=== PATIENT | female | born 1995 | race Caucasian/White ===

== ENCOUNTER 2016-10-20 10:21 | Inpatient (IN) | payer OTHER ==
[2016-10-20 12:29] VITALS: BMI 25.6
--- NOTE | 2016-10-20 15:23 | HP ---
COWS - Scale Resting Pulse: 1= [place] 81-100 Sweatin=Flushed/Facial Moisture Restless Observation: 3= Extraneous Movement Pupil Size: 2= Moderately Dilated Bone or Joint Aches: 2= Severe Diffuse Aches Runny Nose/ Eye Tearin= Runny Nose/Eyes GI Upset > 30mins: 3= Vomiting/Diarrhea Tremor Observation: 2= Slight Tremor Visible Yawning Observation: 2= >3x During Session Anxiety or Irritability: 2=Irritable/Anxious Goose Flesh Skin: 0=Smooth Skin COWS Score: 21 CIWA Score - CIWA Score Nausea/Vomitin Muscle Tremors: 3 Anxiety: 3 Agitation: 3 Paroxysmal Sweats: 2 Orientation: 0-Oriented Tacttile Disturbances: 2-Mild Itch/Numbness/Burn Auditory Disturbances: 2-Mild Harshness/Frighten Visual Disturbances: 2-Mild Sensitivity Headache: 2-Mild CIWA-Ar Total Score: 22 Admission ROS BHS - HPI Chief Complaint: i need help to stops using drugs Allergies/Adverse Reactions: Allergies Allergy/AdvReac Type Severity Reaction Status Date / Time Sulfa (Sulfonamide Allergy Severe Rash Verified 10/20/16 14:50 Antibiotics) History of Present Illness: this 21 years old female with multiple drugs dependence,withdrawal symptom,last detox 03/12/16 to 03/17/16 [facility] anxiety,depression,depression asthma old fx of right ribs longest period of sobriety 2 years Exam Limitations: No Limitations - Ebola screening Have you traveled outside of the country in the last 21 days: No Have you been sick,other than usual withdrawal symptoms: No - Review of Systems Constitutional: Chills, Diaphoresis, Loss of Appetite, Malaise, Night Sweats, Changes in sleep, Weakness EENT: reports: Tearing, Nose Congestion Respiratory: reports: No Symptoms reported, Other (asthma) Cardiac: reports: Palpitations GI: reports: Diarrhea, Nausea, Vomiting, Abdominal cramping : reports: No Symptoms Reported Musculoskeletal: reports: No Symptoms Reported, Back Pain, Joint Pain, Muscle Pain Integumentary: reports: Dryness Neuro: reports: Headache, Tremors Endocrine: reports: No Symptoms Reported Hematology: reports: No Symptoms Reported Psychiatric: reports: Anxious (ptsd), Depressed Patient History - Patient Medical History Hx Anemia: No Hx Asthma: Yes (Pt is on MDI) Hx Chronic Obstructive Pulmonary Disease (COPD): No Hx Cancer: No Hx Cardiac Disorders: No Hx Congestive Heart Failure: No Hx Hypertension: No Hx Hypercholesterolemia: No Hx Pacemaker: No HX Cerebrovascular Accident: No Hx Seizures: No Hx Dementia: No Hx Diabetes: No Hx Gastrointestinal Disorders: No Hx Liver Disease: No Hx Genitourinary Disorders: No Hx Sexually Transmitted Disorders: No Hx Renal Disease (ESRD): No Hx Thyroid Disease: No Hx Human Immunodeficiency Virus (HIV): No (last 10/19/16) Hx Hepatitis C: No Hx Depression: Yes Hx Suicide Attempt: No Hx Bipolar Disorder: Yes Hx Schizophrenia: No Other Medical History: no suiicdal,no homicidal - Patient Surgical History Past Surgical History: Yes Hx Section: Yes (2013) Anesthesia Reaction: No - PPD History Previous Implant?: Yes Documented Results: Negative w/proof Implanted On Prior [facility] Admission?: Yes Date: 02/09/16 Results: 0 MM PPD to be Administered?: No - Reproductive History Patient is a Female of Child Bearing Age (11 -55 yrs old): Yes Last Menstrual Period: 10/20/16 Patient : No - Smoking Cessation Smoking history: Current every day smoker Have you smoked in the past 12 months: Yes Aproximately how many cigarettes per day: 20 Hx Chewing Tobacco Use: No Initiated information on smoking cessation: Yes 'Breaking Loose' booklet given: 10/20/16 - Substance & Tx. History Hx Alcohol Use: No Substance Use Type: Cocaine, Heroin, Marijuana, Tranquilizers Hx Substance Use Treatment: Yes ([facility] 03/12/16 to 03/17/16) - Substances Abused Heroin Route: Injection Frequency: Daily Amount used: 20 BAGS AND UP Age of first use: 8 Date of Last Use: 10/19/16 Alprazolam (Xanax) Route: Oral Frequency: Daily Amount used: 4MG Age of first use: 13 Date of Last Use: 10/19/16 Marijuana/Hashish Route: Smoking Frequency: Daily Amount used: 2 JOINTS Age of first use: 13 Date of Last Use: 10/19/16 Cocaine Route: Inhalation Frequency: Daily Amount used: $100 Age of first use: 11 Date of Last Use: 10/19/16 Family Disease History - Family Disease History Family Disease History: Diabetes: Grandparent, Mother, Other: Father (HEROIN & ALCOHOL) Admission Physical Exam [facility] - Vital Signs Vital Signs: Vital Signs - 24 hr 10/20/16 12:26 Temperature 96 F L Pulse Rate 83 Respiratory 19 Rate Blood Pressure 115/70 - Physical General Appearance: Yes: Moderate Distress, Tremorous, Irritable, Sweating, Anxious HEENTM: Yes: Hearing grossly Normal, Normal ENT Inspection, Pharynx Normal, Nasal Congestion Respiratory: Yes: Lungs Clear, Normal Breath Sounds, No Respiratory Distress Neck: Yes: Within Normal Limits Breast: Yes: Breast Exam Deferred Cardiology: Yes: Within Normal Limits, Regular Rhythm, Regular Rate, S1, S2 Abdominal: Yes: Within Normal Limits, Normal Bowel Sounds, Non Tender, Flat, Soft Genitourinary: Yes: Within Normal Limits Back: Yes: Normal Inspection, Muscle Spasm Musculoskeletal: Yes: Within Normal Limits, full range of Motion, Back pain, Muscle Pain Extremities: Yes: Within Normal Limits, Normal Range of Motion, Tremors Neurological: Yes: refractory technician II-XII NML intact, Fully Oriented, Alert, Motor Strength 5/5 Integumentary: Yes: Dry Lymphatic: Yes: Within Normal Limits - Diagnostic (1) Anxiety and depression Current Visit: No Status: Acute (2) Cocaine dependence Current Visit: No Status: Acute (3) Nicotine dependence Current Visit: No Status: Acute (4) Opioid dependence with withdrawal Current Visit: No Status: Acute (5) Sedative, hypnotic or anxiolytic dependence with withdrawal, uncomplicated Current Visit: No Status: Acute (6) Asthma Current Visit: No Status: Chronic (7) Bipolar I disorder Current Visit: No Status: Chronic (8) PTSD (post-traumatic stress disorder) Current Visit: No Status: Chronic Comment: By history. Cleared for Admission [facility] - Detox or Rehab [facility] Level of Care: Medically Managed Detox Regimen/Protocol: Methadone/Valium [facility] Breath Alcohol Content Breath Alcohol Content: 0 Urine Pregancy Test - Result Urine Test Results: Negative- NO Line Present Urine Drug Screen - Results Drug Screen Negative: No Urine Drug Screen Results: THC-Marijuana, OPI-Opiates, BZO-Benzodiazepines
[2016-10-20] MEDS ORDERED: LOPERAMIDE HCL 2 MG CAPSULE PO PRN (16:58)
[2016-10-20] MEDS ORDERED: P-EPHED 60MG/TRIPROLIDI 2.5MG TABLET PO PRN (16:58)
[2016-10-20] MEDS ORDERED: MENTHOL/PHENOL 1 EACH UD MM PRN (16:58)
[2016-10-20] MEDS ORDERED: guaiFENesin/D-METHORPHAN HB 10 ML UNIT-DOSE CUPS PO PRN (16:58)
[2016-10-20] MEDS ORDERED: MAGNESIUM HYDROX 2400MG/30ML ORAL SUSPENSION 30 ML CUP PO PRN (16:58)
[2016-10-20] MEDS ORDERED: MAGNESIUM CITRATE 300 ML BOTTLE PO PRN (16:58)
[2016-10-20] MEDS ORDERED: MAG HYDROX/AL HYDROX/SIMETH 30 ML UNIT-DOSE CUP PO PRN (16:58)
[2016-10-20] MEDS ORDERED: IBUPROFEN 400 MG TABLET (FP) PO PRN (16:58)
[2016-10-20] MEDS ORDERED: diazePAM 5 MG TABLET PO ONE (17:30)
[2016-10-20] MEDS ORDERED: METHADONE HCL 10 MG TABLET (FOR DETOX USE ONLY) PO ONE ×2 (17:30→23:00)
[2016-10-20] MEDS: NICOTINE POLACRILEX 2 MG GUM BUC PRN (17:39)
[2016-10-20] MEDS: NICOTINE 21 MG/24 HOURS TOPICAL PATCH TD SCH (17:39)
[2016-10-20] MEDS ORDERED: ALBUTEROL SO4 6.7 GM HFA INHALER IH ONE (18:12)
[2016-10-20] MEDS: ALBUTEROL SO4 6.7 GM HFA INHALER IH PRN (18:14)
[2016-10-20] MEDS ORDERED: diphenhydrAMINE HCL 50 MG CAPSULE PO PRN (22:00)
[2016-10-20] MEDS: diazePAM 5 MG TABLET PO SCH (22:41)
[2016-10-20] MEDS: THIAMINE HCL 100 MG TABLET (FP) PO SCH (22:42)
[2016-10-21 00:10] LABS: URINE APPEARANCE CLOUDY; URINE BILIRUBIN NEGATIVE (NEGATIVE); URINE COLOR DKYELLOW; URINE GLUCOSE (UA) NEGATIVE (NEGATIVE); URINE KETONE NEGATIVE (NEGATIVE); URINE NITRITE POSITIVE (NEGATIVE); URINE UROBILINOGEN NEGATIVE E.U./dl (0.2-1.0)
[2016-10-21 01:22] LABS: URINE BLOOD 3+ (NEGATIVE); URINE LEUK ESTERASE 1+ (NEGATIVE); URINE PROTEIN 1+ (NEGATIVE)
[2016-10-21 01:41] LABS: URINE BACTERIA RARE /hpf (NONE SEEN); URINE HYALINE CAST 2 /lpf; URINE MUCUS FEW; URINE RBC 299 /hpf (0-3); URINE WBC 51 /hpf (3-5)
[2016-10-21] MEDS: diazePAM 5 MG TABLET PO PRN ×4 (03:13→19:26)
[2016-10-21] MEDS: ALBUTEROL SO4 6.7 GM HFA INHALER IH PRN ×3 (03:15→22:17)
[2016-10-21] MEDS: diazePAM 5 MG TABLET PO SCH ×3 (05:46→22:17)
[2016-10-21] MEDS ORDERED: METHADONE HCL 10 MG TABLET (FOR DETOX USE ONLY) PO SCH (10:00)
[2016-10-21 10:30] LABS: MCH 29.7 pg (25.7-33.7); MCHC 33.6 g/dl (32.0-36.0); MEAN CELL VOLUME 88.3 fl (80-96); MEAN PLT VOLUME 9.4 fl (7.5-11.1); PLATELET COUNT 449 K/MM3 (134-434); RDW 13.4 % (11.6-15.6); WHITE BLOOD COUNT 9.8 K/mm3 (4.0-10.0)
[2016-10-21] MEDS: PRENATAL VITAMINS W/ FOLIC ACID TABLET (FP) PO SCH (10:43)
[2016-10-21] MEDS: NICOTINE 21 MG/24 HOURS TOPICAL PATCH TD SCH (10:44)
[2016-10-21] MEDS: ACETAMINOPHEN 325 MG TABLET (FP) PO PRN ×2 (10:46→22:18)
[2016-10-21] MEDS: NICOTINE POLACRILEX 2 MG GUM BUC PRN ×4 (10:50→22:18)
[2016-10-21 11:08] LABS: ALBUMIN 3.7 g/dl (3.4-5.0); ALK PHOS 59 U/L (45-117); ANION GAP 8 (8-16); BILIRUBIN,TOTAL 0.3 mg/dL (0.2-1.0); CALCIUM 9.3 mg/dL (8.5-10.1); CO2 27 mmol/L (21-32); CREATININE 0.6 mg/dL (0.55-1.02); GLUCOSE,RANDOM 78 mg/dL (74-106); SGOT/AST 8 U/L (15-37); SGPT/ALT 15 U/L (12-78); TOT PROT 6.8 g/dl (6.4-8.2)
[2016-10-21] MEDS: CYCLOBENZAPRINE HCL 10 MG TABLET (FP) PO PRN ×2 (12:09→22:17)
--- NOTE | 2016-10-21 13:54 | PN ---
S CIWA - CIWA Score Nausea/Vomitin Muscle Tremors: 3 Anxiety: 3 Agitation: 3 Paroxysmal Sweats: 2 Orientation: 0-Oriented Tacttile Disturbances: 1-Very Mild Itch/Numbness Auditory Disturbances: 1-Very Mild Visual Disturbances: 1-Very Mild Sensitivity Headache: 2-Mild CIWA-Ar Total Score: 19 S Progress Note (SOAP) Subjective: ALERT,IRRITABLE,ANXIOUS,INTERRUPTED SLEEP,TREMOR,PAIN IN THE BODY AND BACK Objective: 10/21/16 13:51 Vital Signs Temperature 97.7 F 10/21/16 10:24 Pulse Rate 81 10/21/16 10:24 Respiratory Rate 20 10/21/16 10:24 Blood Pressure 108/71 10/21/16 10:24 O2 Sat by Pulse Oximetry (%) EKG SINUS RHYTHM WITH SINUS ARRHYTHMIA Laboratory Last Values WBC 9.8 K/mm3 (4.0-10.0) 10/21/16 06:30 RBC 4.31 M/mm3 (3.60-5.2) 10/21/16 06:30 Hgb 12.8 GM/dL (10.7-15.3) 10/21/16 06:30 Hct 38.1 % (32.4-45.2) 10/21/16 06:30 MCV 88.3 fl (80-96) 10/21/16 06:30 MCHC 33.6 g/dl (32.0-36.0) 10/21/16 06:30 RDW 13.4 % (11.6-15.6) 10/21/16 06:30 Plt Count 449 K/MM3 (134-434) H 10/21/16 06:30 MPV 9.4 fl (7.5-11.1) D 10/21/16 06:30 Sodium 139 mmol/L (136-145) 10/21/16 06:30 Potassium 4.1 mmol/L (3.5-5.1) 10/21/16 06:30 Chloride 104 mmol/L (98-107) 10/21/16 06:30 Carbon Dioxide 27 mmol/L (21-32) 10/21/16 06:30 Anion Gap 8 (8-16) 10/21/16 06:30 BUN 12 mg/dL (7-18) D 10/21/16 06:30 Creatinine 0.6 mg/dL (0.55-1.02) 10/21/16 06:30 Creat Clearance w eGFR > 60 (>60) 10/21/16 06:30 Random Glucose 78 mg/dL (74-106) 10/21/16 06:30 Calcium 9.3 mg/dL (8.5-10.1) 10/21/16 06:30 Total Bilirubin 0.3 mg/dL (0.2-1.0) D 10/21/16 06:30 AST 8 U/L (15-37) L 10/21/16 06:30 ALT 15 U/L (12-78) D 10/21/16 06:30 Alkaline Phosphatase 59 U/L (45-117) 10/21/16 06:30 Total Protein 6.8 g/dl (6.4-8.2) 10/21/16 06:30 Albumin 3.7 g/dl (3.4-5.0) 10/21/16 06:30 Urine Color Dkyellow 10/20/16 21:16 Urine Appearance Cloudy 10/20/16 21:16 Urine pH 5.0 (5.0-8.0) 10/20/16 21:16 Ur Specific [place] 1.025 (1.001-1.035) 10/20/16 21:16 Urine Protein 1+ (NEGATIVE) H 10/20/16 21:16 Urine Glucose (UA) Negative (NEGATIVE) 10/20/16 21:16 Urine Ketones Negative (NEGATIVE) 10/20/16 21:16 Urine Blood 3+ (NEGATIVE) H 10/20/16 21:16 Urine Nitrite Positive (NEGATIVE) 10/20/16 21:16 Urine Bilirubin Negative (NEGATIVE) 10/20/16 21:16 Urine Urobilinogen Negative E.U./dl (0.2-1.0) 10/20/16 21:16 Ur Leukocyte Esterase 1+ (NEGATIVE) H 10/20/16 21:16 Urine RBC 299 /hpf (0-3) 10/20/16 21:16 Urine WBC 51 /hpf (3-5) 10/20/16 21:16 Ur Epithelial Cells Few /hpf (FEW) 10/20/16 21:16 Urine Bacteria Rare /hpf (NONE SEEN) 10/20/16 21:16 Hyaline Casts 2 /lpf 10/20/16 21:16 Urine Mucus Few 10/20/16 21:16 RPR Titer Nonreactive (NONREACTIVE) 10/21/16 06:30 10/21/16 13:52 PATIENT IS HAVING MENSTRUATION NOW Assessment: 10/21/16 13:52 WITHDRAWAL SYMPTOM Plan: CONTINUE DETOX
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
[2016-10-21] MEDS: ARIPiprazole 15 MG TABLET PO SCH (18:34)
[2016-10-21] MEDS: traZODone HCL 50 MG TABLET (FP) PO SCH (22:16)
[2016-10-21] MEDS: THIAMINE HCL 100 MG TABLET (FP) PO SCH (22:16)
[2016-10-21] MEDS: LITHIUM CARBONATE 300 MG CAPSULE (FP) PO SCH (22:17)
[2016-10-22] MEDS: diazePAM 5 MG TABLET PO PRN ×3 (05:52→19:50)
[2016-10-22] MEDS: CYCLOBENZAPRINE HCL 10 MG TABLET (FP) PO PRN ×3 (05:53→22:33)
[2016-10-22] MEDS: ACETAMINOPHEN 325 MG TABLET (FP) PO PRN (05:53)
[2016-10-22] MEDS: LITHIUM CARBONATE 300 MG CAPSULE (FP) PO SCH ×3 (05:57→22:33)
[2016-10-22] MEDS: METHADONE HCL 5 MG TABLET (FOR DETOX USE ONLY) PO SCH (10:31)
[2016-10-22] MEDS: PRENATAL VITAMINS W/ FOLIC ACID TABLET (FP) PO SCH (10:31)
[2016-10-22] MEDS: diazePAM 5 MG TABLET PO SCH ×2 (10:31→22:33)
[2016-10-22] MEDS: GABAPENTIN 300 MG CAPSULE (FP) PO SCH (10:31)
[2016-10-22] MEDS: NICOTINE 21 MG/24 HOURS TOPICAL PATCH TD SCH (10:33)
[2016-10-22] MEDS: ARIPiprazole 15 MG TABLET PO SCH (12:12)
[2016-10-22] MEDS: NICOTINE POLACRILEX 2 MG GUM BUC PRN ×2 (13:34→22:33)
--- NOTE | 2016-10-22 14:19 | PN ---
[facility] CIWA - CIWA Score Nausea/Vomitin Muscle Tremors: 3 Anxiety: 3 Agitation: 2 Paroxysmal Sweats: 1-Minimal Palms Moist Orientation: 0-Oriented Tacttile Disturbances: 1-Very Mild Itch/Numbness Auditory Disturbances: 1-Very Mild Visual Disturbances: 1-Very Mild Sensitivity Headache: 2-Mild CIWA-Ar Total Score: 17 [facility] COWS - Scale Resting Pulse: 1= [place] 81-100 Sweatin= Chills/Flushing Restless Observation: 3= Extraneous Movement Pupil Size: 1= Pupils >than Normal Bone or Joint Aches: 2= Severe Diffuse Aches Runny Nose/ Eye Tearin= Runny Nose/Eyes GI Upset > 30mins: 2= Nausea/Diarrhea Tremor Observation of Outstretched Hands: 2= Slight Tremor Visible Yawning Observation: 1= 1-2x During Session Anxiety or Irritability: 2=Irritable/Anxious Goose Flesh Skin: 0=Smooth Skin COWS Score: 17 [facility] Progress Note (SOAP) Subjective: ALERT,IRRITABLE,ANXIOUS,INTERRUPTED SLEEP,TREMOR,PAIN IN THE BODY AND BACK Objective: 10/22/16 14:19 Vital Signs Temperature 97.7 F 10/22/16 14:17 Pulse Rate 95 H 10/22/16 14:17 Respiratory Rate 18 10/22/16 14:17 Blood Pressure 96/60 10/22/16 14:17 O2 Sat by Pulse Oximetry (%) Assessment: 10/22/16 14:19 WITHDRAWAL SYMPTOM Plan: CONTINUE DETOX
[2016-10-22] MEDS: ALBUTEROL SO4 6.7 GM HFA INHALER IH PRN (19:48)
[2016-10-22] MEDS: THIAMINE HCL 100 MG TABLET (FP) PO SCH (22:32)
[2016-10-22] MEDS: traZODone HCL 50 MG TABLET (FP) PO SCH (22:33)
[2016-10-23] MEDS: LITHIUM CARBONATE 300 MG CAPSULE (FP) PO SCH ×3 (05:57→22:29)
[2016-10-23] MEDS: ACETAMINOPHEN 325 MG TABLET (FP) PO PRN ×3 (05:57→22:31)
[2016-10-23] MEDS: diazePAM 5 MG TABLET PO PRN ×2 (06:08→15:04)
--- NOTE | 2016-10-23 08:47 | EKG ---
Test Reason : Blood Pressure : / mmHG Vent. Rate : 068 BPM Atrial Rate : 068 BPM P-R Int : 108 ms QRS Dur : 086 ms QT Int : 384 ms P-R-T Axes : 019 078 055 degrees QTc Int : 408 ms SINUS RHYTHM WITH SINUS ARRHYTHMIA WITH SHORT [place] OTHERWISE NORMAL ECG NO PREVIOUS ECGS AVAILABLE Confirmed by KRISTINA STEWART MD ([id number]) on 10/23/2016 8:47:40 AM Referred By: Confirmed By:KRISTINA STEWART MD
[2016-10-23] MEDS: diazePAM 5 MG TABLET PO SCH ×2 (10:42→22:29)
[2016-10-23] MEDS: PRENATAL VITAMINS W/ FOLIC ACID TABLET (FP) PO SCH (10:42)
[2016-10-23] MEDS: METHADONE HCL 5 MG TABLET (FOR DETOX USE ONLY) PO SCH (10:43)
[2016-10-23] MEDS: ARIPiprazole 15 MG TABLET PO SCH (10:43)
[2016-10-23] MEDS: GABAPENTIN 300 MG CAPSULE (FP) PO SCH (10:43)
[2016-10-23] MEDS: NICOTINE 21 MG/24 HOURS TOPICAL PATCH TD SCH (10:44)
[2016-10-23] MEDS: NICOTINE POLACRILEX 2 MG GUM BUC PRN ×3 (10:46→22:30)
[2016-10-23] MEDS: ALBUTEROL SO4 6.7 GM HFA INHALER IH PRN ×2 (10:47→17:35)
--- NOTE | 2016-10-23 11:00 | PN ---
[facility] Progress Note (SOAP) Subjective: interrupted sleep, sweats, mild dizziness , lbp Objective: 10/23/16 10:58 Vital Signs Temperature 97.9 F 10/23/16 06:00 Pulse Rate 63 10/23/16 06:00 Respiratory Rate 18 10/23/16 06:00 Blood Pressure 97/59 10/23/16 06:00 O2 Sat by Pulse Oximetry (%) Laboratory Tests 10/20/16 10/21/16 10/21/16 21:16 06:30 06:30 WBC 9.8 RBC 4.31 Hgb 12.8 Hct 38.1 MCV 88.3 MCHC 33.6 RDW 13.4 Plt Count 449 H MPV 9.4 D Sodium 139 Potassium 4.1 Chloride 104 Carbon Dioxide 27 Anion Gap 8 BUN 12 D Creatinine 0.6 Creat Clearance w eGFR > 60 Random Glucose 78 Calcium 9.3 Total Bilirubin 0.3 D AST 8 L ALT 15 D Alkaline Phosphatase 59 Total Protein 6.8 Albumin 3.7 Urine Color Dkyellow Urine Appearance Cloudy Urine pH 5.0 Ur Specific [place] 1.025 Urine Protein 1+ H Urine Glucose (UA) Negative Urine Ketones Negative Urine Blood 3+ H Urine Nitrite Positive Urine Bilirubin Negative Urine Urobilinogen Negative Ur Leukocyte Esterase 1+ H Urine RBC 299 Urine WBC 51 Ur Epithelial Cells Few Urine Bacteria Rare Hyaline Casts 2 Urine Mucus Few RPR Titer 10/21/16 06:30 WBC RBC Hgb Hct MCV MCHC RDW Plt Count MPV Sodium Potassium Chloride Carbon Dioxide Anion Gap BUN Creatinine Creat Clearance w eGFR Random Glucose Calcium Total Bilirubin AST ALT Alkaline Phosphatase Total Protein Albumin Urine Color Urine Appearance Urine pH Ur Specific [place] Urine Protein Urine Glucose (UA) Urine Ketones Urine Blood Urine Nitrite Urine Bilirubin Urine Urobilinogen Ur Leukocyte Esterase Urine RBC Urine WBC Ur Epithelial Cells Urine Bacteria Hyaline Casts Urine Mucus RPR Titer Nonreactive pt aox3 in nad lying in bed Assessment: 10/23/16 10:59 khadar archuleta's lbp Plan: cont. detox increase fluids
[2016-10-23] MEDS: CYCLOBENZAPRINE HCL 10 MG TABLET (FP) PO PRN (15:05)
[2016-10-23] MEDS ORDERED: COLLOIDAL OATMEAL 1 BAR EACH TP PRN (15:56)
[2016-10-23] MEDS: traZODone HCL 50 MG TABLET (FP) PO SCH (22:29)
[2016-10-23] MEDS: THIAMINE HCL 100 MG TABLET (FP) PO SCH (22:29)
[2016-10-24] MEDS: LITHIUM CARBONATE 300 MG CAPSULE (FP) PO SCH ×3 (05:07→22:25)
[2016-10-24] MEDS: hydrOXYzine PAMOATE 50 MG CAPSULE (FP) PO PRN ×3 (05:09→22:26)
[2016-10-24] MEDS: ACETAMINOPHEN 325 MG TABLET (FP) PO PRN ×3 (05:09→17:46)
[2016-10-24] MEDS: ALBUTEROL SO4 6.7 GM HFA INHALER IH PRN ×3 (05:11→22:27)
[2016-10-24] MEDS ORDERED: diazePAM 5 MG TABLET PO SCH (10:00)
[2016-10-24] MEDS ORDERED: METHADONE HCL 10 MG TABLET (FOR DETOX USE ONLY) PO SCH (10:00)
[2016-10-24] MEDS: GABAPENTIN 300 MG CAPSULE (FP) PO SCH (10:20)
[2016-10-24] MEDS: ARIPiprazole 15 MG TABLET PO SCH (10:20)
[2016-10-24] MEDS: PRENATAL VITAMINS W/ FOLIC ACID TABLET (FP) PO SCH (10:20)
[2016-10-24] MEDS: NICOTINE 21 MG/24 HOURS TOPICAL PATCH TD SCH (10:21)
[2016-10-24] MEDS: CYCLOBENZAPRINE HCL 10 MG TABLET (FP) PO PRN ×3 (10:22→22:25)
--- NOTE | 2016-10-24 10:50 | PN ---
B[facility] Progress Note (SOAP) Subjective: interrupted sleep, sweats, shakes, nausea , bodyaches Objective: 10/24/16 10:48 Vital Signs Temperature 98.2 F 10/24/16 06:28 Pulse Rate 115 H 10/24/16 06:28 Respiratory Rate 20 10/24/16 06:28 Blood Pressure 106/61 10/24/16 06:28 O2 Sat by Pulse Oximetry (%) Laboratory Tests 10/20/16 10/21/16 10/21/16 21:16 06:30 06:30 WBC 9.8 RBC 4.31 Hgb 12.8 Hct 38.1 MCV 88.3 MCHC 33.6 RDW 13.4 Plt Count 449 H MPV 9.4 D Sodium 139 Potassium 4.1 Chloride 104 Carbon Dioxide 27 Anion Gap 8 BUN 12 D Creatinine 0.6 Creat Clearance w eGFR > 60 Random Glucose 78 Calcium 9.3 Total Bilirubin 0.3 D AST 8 L ALT 15 D Alkaline Phosphatase 59 Total Protein 6.8 Albumin 3.7 Urine Color Dkyellow Urine Appearance Cloudy Urine pH 5.0 Ur Specific [place] 1.025 Urine Protein 1+ H Urine Glucose (UA) Negative Urine Ketones Negative Urine Blood 3+ H Urine Nitrite Positive Urine Bilirubin Negative Urine Urobilinogen Negative Ur Leukocyte Esterase 1+ H Urine RBC 299 Urine WBC 51 Ur Epithelial Cells Few Urine Bacteria Rare Hyaline Casts 2 Urine Mucus Few RPR Titer 10/21/16 06:30 WBC RBC Hgb Hct MCV MCHC RDW Plt Count MPV Sodium Potassium Chloride Carbon Dioxide Anion Gap BUN Creatinine Creat Clearance w eGFR Random Glucose Calcium Total Bilirubin AST ALT Alkaline Phosphatase Total Protein Albumin Urine Color Urine Appearance Urine pH Ur Specific [place] Urine Protein Urine Glucose (UA) Urine Ketones Urine Blood Urine Nitrite Urine Bilirubin Urine Urobilinogen Ur Leukocyte Esterase Urine RBC Urine WBC Ur Epithelial Cells Urine Bacteria Hyaline Casts Urine Mucus RPR Titer Nonreactive pt aox3 lying in bed Assessment: 10/24/16 10:49 withdrawal sx's Plan: cont detox increase fluids motrin 600mg tid vistaril prn
[2016-10-24] MEDS ORDERED: IBUPROFEN 600 MG TABLET (FP) PO PRN (10:51)
[2016-10-24] MEDS ORDERED: ONDANSETRON *ODT* 4 MG TABLET SL PRN (11:01)
[2016-10-24] MEDS: NICOTINE POLACRILEX 2 MG GUM BUC PRN ×2 (17:46→22:27)
[2016-10-24] MEDS: THIAMINE HCL 100 MG TABLET (FP) PO SCH (22:24)
[2016-10-24] MEDS: traZODone HCL 50 MG TABLET (FP) PO SCH (22:24)
[2016-10-25] MEDS: ALBUTEROL SO4 6.7 GM HFA INHALER IH PRN ×2 (05:26→09:52)
[2016-10-25] MEDS: LITHIUM CARBONATE 300 MG CAPSULE (FP) PO SCH (05:26)
[2016-10-25] MEDS: ACETAMINOPHEN 325 MG TABLET (FP) PO PRN (05:27)
[2016-10-25] MEDS ORDERED: METHADONE HCL 5 MG TABLET (FOR DETOX USE ONLY) PO SCH (06:00)
[2016-10-25 06:25] VITALS: BP 101/56; PULSE 78; TEMP 98.1
--- NOTE | 2016-10-25 09:01 | DS ---
[facility] Detox Discharge Summary Admission Date: 10/20/16 Discharge Date: 10/25/16 - History Present History: Cannabis Dependence, Cocaine Dependence, Opioid Dependence - Physical Exam Results Vital Signs: Vital Signs Temperature 98.1 F 10/25/16 06:00 Pulse Rate 78 10/25/16 06:00 Respiratory Rate 16 10/25/16 06:00 Blood Pressure 101/56 10/25/16 06:00 O2 Sat by Pulse Oximetry (%) - Treatment Hospital Course: Detox Protocol Followed, Detoxed Safely, Responded well, Discharged Condition Good - Medication Discharge Medications: Ambulatory Orders Albuterol Sulfate Inhaler - [Ventolin HFA Inhaler -] 2 inh PO Q6H PRN 02/06/16 Aripiprazole [Abilify -] 15 mg PO DAILY 10/20/16 Gabapentin [Neurontin -] 300 mg PO DAILY 10/20/16 [place] Carbonate [Eskalith -] 900 mg PO HS 10/20/16 Trazodone HCl [Desyrel -] 100 mg PO HS 10/20/16 - Diagnosis (1) Cannabis dependence Current Visit: Yes Status: Chronic (2) Cocaine dependence Current Visit: Yes Status: Chronic Qualifiers: Substance use status: uncomplicated Qualified Code(s): F14.20 - Cocaine dependence, uncomplicated (3) Nicotine dependence Current Visit: Yes Status: Chronic (4) Opioid dependence with withdrawal Current Visit: Yes Status: Chronic (5) Sedative, hypnotic or anxiolytic dependence with withdrawal, uncomplicated Current Visit: Yes Status: Chronic (6) Asthma Current Visit: Yes Status: Chronic Qualifiers: Asthma severity: mild intermittent (7) Bipolar disorder Current Visit: Yes Status: Chronic Qualifiers: Current episode severity: unspecified (8) Anxiety and depression Current Visit: Yes Status: Chronic - AMA Did Patient Leave Against Medical Advice: No
[2016-10-25] MEDS: GABAPENTIN 300 MG CAPSULE (FP) PO SCH (09:51)
[2016-10-25] MEDS: ARIPiprazole 15 MG TABLET PO SCH (09:51)
[2016-10-25] MEDS: CYCLOBENZAPRINE HCL 10 MG TABLET (FP) PO PRN (09:51)
== END 2016-10-25 10:15 | disposition home or self-care (01) | DRG 773 ==
LOC: YASAS 10:21 → Y6N 15:28
PROVIDERS: ADMIT Internal Medicine; ATTEND Internal Medicine
PROC: HZ2ZZZZ Detoxification Services for Substance Abuse Treatment (ICD-10-PCS; principal; 2016-10-25)
DX: F11.23 Opioid dependence with withdrawal (principal); F13.230 Sedative, hypnotic or anxiolytic dependence with withdrawal, uncomplicated; F14.20 Cocaine dependence, uncomplicated; F12.20 Cannabis dependence, uncomplicated; F17.210 Nicotine dependence, cigarettes, uncomplicated; F43.10 Post-traumatic stress disorder, unspecified; G47.00 Insomnia, unspecified; F31.9 Bipolar disorder, unspecified; F41.8 Other specified anxiety disorders; J45.909 Unspecified asthma, uncomplicated
CPT/HCPCS: 36415; 80053; 80178; 81003; 81015; 85027; 86593; 93005; 93010

== ENCOUNTER 2016-12-05 06:48 | Inpatient (IN) | payer OTHER ==
[2016-12-05] MEDS ORDERED: hydrOXYzine PAMOATE 50 MG CAPSULE (FP) PO PRN (06:53)
[2016-12-05] MEDS ORDERED: LOPERAMIDE HCL 2 MG CAPSULE PO PRN (06:53)
[2016-12-05] MEDS ORDERED: diphenhydrAMINE HCL 50 MG CAPSULE PO PRN (06:53)
[2016-12-05] MEDS ORDERED: MAG HYDROX/AL HYDROX/SIMETH 30 ML UNIT-DOSE CUP PO PRN (06:53)
[2016-12-05] MEDS ORDERED: P-EPHED 60MG/TRIPROLIDI 2.5MG TABLET PO PRN (06:53)
[2016-12-05] MEDS ORDERED: guaiFENesin/D-METHORPHAN HB 10 ML UNIT-DOSE CUPS PO PRN (06:53)
[2016-12-05] MEDS ORDERED: IBUPROFEN 400 MG TABLET (FP) PO PRN (06:53)
[2016-12-05] MEDS ORDERED: METHADONE HCL 10 MG TABLET (FOR DETOX USE ONLY) PO ONE ×2 (06:53→22:00)
[2016-12-05] MEDS ORDERED: chlordiazePOXIDE HCL 25 MG CAPSULE PO PRN (06:53)
[2016-12-05] MEDS ORDERED: MENTHOL/PHENOL 1 EACH UD MM PRN (06:53)
[2016-12-05] MEDS ORDERED: MAGNESIUM HYDROX 2400MG/30ML ORAL SUSPENSION 30 ML CUP PO PRN (06:53)
[2016-12-05] MEDS ORDERED: ACETAMINOPHEN 325 MG TABLET (FP) PO PRN (06:53)
[2016-12-05] MEDS ORDERED: MAGNESIUM CITRATE 300 ML BOTTLE PO PRN (06:53)
[2016-12-05] MEDS ORDERED: ALBUTEROL SO4 2.5/IPRATROPIUM 0.5 INH SOL 3 ML VIAL.NEB. NEB PRN (06:56)
--- NOTE | 2016-12-05 07:02 | HP ---
COWS - Scale Resting Pulse: 1= UT 81-100 Sweatin= Beads of Sweat on Face Restless Observation: 5= Unable to Sit Still Pupil Size: 2= Moderately Dilated Bone or Joint Aches: 4=Acute Joint/Muscle Pain Runny Nose/ Eye Tearin= Runny Nose/Eyes GI Upset > 30mins: 2= Nausea/Diarrhea Tremor Observation: 4= Gross Tremor/Twitching Yawning Observation: 1= 1-2x During Session Anxiety or Irritability: 2=Irritable/Anxious Goose Flesh Skin: 0=Smooth Skin COWS Score: 26 CIWA Score - CIWA Score Nausea/Vomitin Muscle Tremors: 4-Moderate,w/Arms Extend Anxiety: 4-Mod. Anxious/Guarded Agitation: 4-Moderately Restless Paroxysmal Sweats: 3 Orientation: 1-Uncertain about Date Tacttile Disturbances: 2-Mild Itch/Numbness/Burn Auditory Disturbances: 0-None Visual Disturbances: 0-None Headache: 2-Mild CIWA-Ar Total Score: 22 Admission ROS S - HPI Chief Complaint: SEEKING DETOX FOR HEROIN DEPENDENCE Allergies/Adverse Reactions: Allergies Allergy/AdvReac Type Severity Reaction Status Date / Time Sulfa (Sulfonamide Allergy Severe Rash Verified 10/20/16 14:50 Antibiotics) History of Present Illness: 21 Y.O. FEMALE KNOWN TO [facility] ADMITTED FOR DETOX TXMENT. Exam Limitations: No Limitations - Ebola screening Have you traveled outside of the country in the last 21 days: No Have you had contact with anyone from an Ebola affected area: No Have you been sick,other than usual withdrawal symptoms: No Do you have a fever: No - Review of Systems Constitutional: Chills, Loss of Appetite, Malaise, Night Sweats, Changes in sleep EENT: reports: Other (RINORRHEA) Respiratory: reports: No Symptoms reported Cardiac: reports: No Symptoms Reported GI: reports: Diarrhea, Poor Appetite, Poor Fluid Intake, Abdominal cramping Musculoskeletal: reports: Joint Pain Integumentary: reports: Sweating Neuro: reports: No Symptoms reported Endocrine: reports: No Symptoms Reported Hematology: reports: No Symptoms Reported Psychiatric: reports: Anxious Other Systems: Reviewed and Negative Patient History - Patient Medical History Hx Anemia: No Hx Asthma: Yes (Pt is on MDI) Hx Chronic Obstructive Pulmonary Disease (COPD): No Hx Cancer: No Hx Cardiac Disorders: No Hx Congestive Heart Failure: No Hx Hypertension: No Hx Hypercholesterolemia: No Hx Pacemaker: No HX Cerebrovascular Accident: No Hx Seizures: No Hx Dementia: No Hx Diabetes: No Hx Gastrointestinal Disorders: No Hx Liver Disease: No Hx Genitourinary Disorders: No Hx Sexually Transmitted Disorders: No Hx Renal Disease (ESRD): No Hx Thyroid Disease: No Hx Human Immunodeficiency Virus (HIV): No Hx Hepatitis C: No Hx Depression: Yes Hx Suicide Attempt: No Hx Bipolar Disorder: Yes Hx Schizophrenia: No Other Medical History: INSOMNIA - Patient Surgical History Past Surgical History: Yes Hx Section: Yes (2013) Anesthesia Reaction: No - PPD History Previous Implant?: Yes Documented Results: Negative w/proof Implanted On Prior [facility] Admission?: Yes Date: 02/09/16 Results: 0 MM PPD to be Administered?: No - Reproductive History Patient is a Female of Child Bearing Age (11 -55 yrs old): Yes Last Menstrual Period: 11/21/16 Patient : No (NEG [facility]) - Smoking Cessation Smoking history: Current every day smoker Have you smoked in the past 12 months: Yes Aproximately how many cigarettes per day: 10 Cigars Per Day: 0 Hx Chewing Tobacco Use: No Initiated information on smoking cessation: Yes 'Breaking Loose' booklet given: 12/05/16 - Substance & Tx. History Hx Alcohol Use: Yes Hx Substance Use: Yes Substance Use Type: Heroin, Marijuana Hx Substance Use Treatment: Yes ([facility]) - Substances Abused HEROIN Route: Injection Frequency: Daily Amount used: 10-20 BUNDLES Age of first use: 4 Date of Last Use: 12/04/16 THC Route: Smoking Frequency: Daily Amount used: 2 JOINTS Age of first use: 11 Date of Last Use: 12/04/16 BEER/VODKA Route: Oral Frequency: 3-6 times per week Age of first use: 10 Date of Last Use: 12/02/16 Family Disease History - Family Disease History Family Disease History: Diabetes: Grandparent, Mother (HEROIN/ CRACK/COCAINE), Other: Father (HEROIN & ALCOHOL), Mother Admission Physical Exam [facility] - Physical General Appearance: Yes: Appropriately Dressed, Mild Distress, Tremorous, Sweating, Anxious HEENTM: Yes: EOMI, Normocephalic, Normal Voice, YUSUF, Pharynx Normal, Rhinorrhea , Other (DIALATED PUPILS) Respiratory: Yes: Chest Non-Tender, Lungs Clear, Normal Breath Sounds, No Respiratory Distress, No Accessory Muscle Use Neck: Yes: No masses,lesions,Nodules, Supple, Trachea in good position Breast: Yes: Breast Exam Deferred Cardiology: Yes: Regular Rhythm, S1, S2, Tachycardia Abdominal: Yes: Normal Bowel Sounds, Non Tender, Soft Genitourinary: Yes: Within Normal Limits Back: Yes: Normal Inspection Musculoskeletal: Yes: full range of Motion, Gait Steady Extremities: Yes: Normal Capillary Refill, Normal Range of Motion, Non-Tender, Tremors Neurological: Yes: inductor tester II-XII NML intact, Alert, Motor Strength 5/5 Integumentary: Yes: Clammy, Moist, Other (IVDA HODGE) Lymphatic: Yes: Within Normal Limits - Diagnostic (1) Asthma Current Visit: No Status: Chronic Qualifiers: Asthma severity: mild intermittent (2) Cannabis dependence Current Visit: Yes Status: Chronic (3) Nicotine dependence Current Visit: Yes Status: Chronic Qualifiers: Nicotine product type: cigarettes Substance use status: uncomplicated Qualified Code(s): F17.210 - Nicotine dependence, cigarettes, uncomplicated (4) Opioid dependence with withdrawal Current Visit: Yes Status: Chronic Cleared for Admission S - Detox or Rehab S Level of Care: Medically Managed Detox Regimen/Protocol: Methadone/Librium BHS Breath Alcohol Content Breath Alcohol Content: 0 Vital Signs - Vital Signs Vital Signs Refused: No Temperature: 96.8 F Temperature Source: Oral Pulse Rate: 91 Respiratory Rate: 20 Blood Pressure: 101/67 BP Location: Left Arm Blood Pressure Position: Sitting - Height Height: 5 ft 2 in - Weight Weight: 63.796 kg Weight Measurement Method: Stated by Patient Body Mass Index (BMI): 25.7 Urine Pregancy Test - Test Device Lot Number: [id number] Expiration Date: 06/07/18 - Control Horizontal Line in Upper Control Window?: Yes - Result Urine Test Results: Negative- NO Line Present Urine Drug Screen - Test Device Lot Number: [id number] Expiration Date: 08/08/18 - Control Is Test Valid: Yes - Results Drug Screen Negative: No Urine Drug Screen Results: THC-Marijuana, OPI-Opiates
[2016-12-05 07:10] VITALS: BMI 25.7
[2016-12-05] MEDS: chlordiazePOXIDE HCL 25 MG CAPSULE PO SCH ×2 (07:27→10:13)
[2016-12-05] MEDS: NICOTINE POLACRILEX 2 MG GUM BUC PRN ×2 (09:26→14:49)
--- NOTE | 2016-12-05 09:26 | PN ---
[facility] CIWA - CIWA Score Nausea/Vomitin-No Nausea/No Vomiting Muscle Tremors: 4-Moderate,w/Arms Extend Anxiety: 3 Agitation: 4-Moderately Restless Paroxysmal Sweats: 3 Orientation: 0-Oriented Tacttile Disturbances: 0-None Auditory Disturbances: 0-None Visual Disturbances: 0-None Headache: 0-None Present CIWA-Ar Total Score: 14 S COWS - Scale Resting Pulse: 0= PA 80 or Below Sweatin=Flushed/Facial Moisture Restless Observation: 1= Difficult to Sit Still Pupil Size: 0= Normal to Room Light Bone or Joint Aches: 2= Severe Diffuse Aches Runny Nose/ Eye Tearin= Runny Nose/Eyes GI Upset > 30mins: 0= None Tremor Observation of Outstretched Hands: 2= Slight Tremor Visible Yawning Observation: 1= 1-2x During Session Anxiety or Irritability: 2=Irritable/Anxious Goose Flesh Skin: 0=Smooth Skin COWS Score: 12 [facility] Progress Note (SOAP) Subjective: i have a UTI sweats irritable agitation restless Objective: 12/05/16 09:27 Vital Signs Temperature 96.8 F L 12/05/16 07:10 Pulse Rate 91 H 12/05/16 07:10 Respiratory Rate 20 12/05/16 07:10 Blood Pressure 101/67 12/05/16 07:10 O2 Sat by Pulse Oximetry (%) labs pending awake/alert ambulating no acute distress Assessment: 12/05/16 09:28 withdrawal sx Plan: continue detox increase fluids levaquin po x 3 days labs pending
[2016-12-05 09:51] VITALS: TEMP 97.5
[2016-12-05] MEDS ORDERED: NICOTINE 14 MG/24 HOURS TOPICAL PATCH TD SCH (10:00)
[2016-12-05] MEDS ORDERED: LEVOFLOXACIN 250 MG TABLET (FP) PO SCH (10:00)
[2016-12-05] MEDS ORDERED: PRENATAL VITAMINS W/ FOLIC ACID TABLET (FP) PO SCH (10:00)
[2016-12-05 12:07] LABS: MCH 29.3 pg (25.7-33.7); MCHC 33.2 g/dl (32.0-36.0); MEAN CELL VOLUME 88.5 fl (80-96); MEAN PLT VOLUME 8.4 fl (7.5-11.1); PLATELET COUNT 411 K/MM3 (134-434); RDW 14.4 % (11.6-15.6); WHITE BLOOD COUNT 10.1 K/mm3 (4.0-10.0)
[2016-12-05 12:28] LABS: ALBUMIN 4.3 g/dl (3.4-5.0); ALK PHOS 62 U/L (45-117); ANION GAP 10 (8-16); BILIRUBIN,TOTAL 0.4 mg/dL (0.2-1.0); CALCIUM 9.4 mg/dL (8.5-10.1); CO2 26 mmol/L (21-32); COCKROFT - GAULT 125.8765; CREATININE 0.7 mg/dL (0.55-1.02); GLUCOSE,RANDOM 107 mg/dL (74-106); SGOT/AST 11 U/L (15-37); SGPT/ALT 15 U/L (12-78); TOT PROT 7.6 g/dl (6.4-8.2)
[2016-12-05] MEDS ORDERED: CYCLOBENZAPRINE HCL 10 MG TABLET (FP) PO PRN (13:01)
[2016-12-05 13:14] LABS: URINE APPEARANCE CLOUDY; URINE BILIRUBIN NEGATIVE (NEGATIVE); URINE COLOR YELLOW; URINE GLUCOSE (UA) NEGATIVE (NEGATIVE); URINE KETONE NEGATIVE (NEGATIVE); URINE NITRITE POSITIVE (NEGATIVE); URINE UROBILINOGEN NEGATIVE E.U./dl (0.2-1.0)
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
[2016-12-05 13:38] LABS: URINE BLOOD 2+ (NEGATIVE); URINE LEUK ESTERASE 3+ (NEGATIVE); URINE PROTEIN 2+ (NEGATIVE)
[2016-12-05 13:41] LABS: URINE BACTERIA RARE /hpf (NONE SEEN); URINE MUCUS MODERATE; URINE RBC 90 /hpf (0-3); URINE WBC 276 /hpf (3-5)
[2016-12-05] MEDS ORDERED: GABAPENTIN 300 MG CAPSULE (FP) PO SCH (14:00)
[2016-12-05 14:12] VITALS: BP 98/59; PULSE 79
--- NOTE | 2016-12-05 14:21 | EKG ---
Test Reason : Blood Pressure : / mmHG Vent. Rate : 064 BPM Atrial Rate : 064 BPM P-R Int : 116 ms QRS Dur : 084 ms QT Int : 380 ms P-R-T Axes : 015 072 046 degrees QTc Int : 392 ms SINUS RHYTHM WITH MARKED SINUS ARRHYTHMIA OTHERWISE NORMAL ECG WHEN COMPARED WITH ECG OF 20-OCT-2016 15:19, NO SIGNIFICANT CHANGE WAS FOUND Confirmed by ALMAS FULLER MD ([id number]) on 12/05/2016 2:21:31 PM Referred By: Confirmed By:ALMAS FULLER MD
--- NOTE | 2016-12-05 16:40 | DS ---
[facility] Detox Discharge Summary Admission Date: 12/05/16 Discharge Date: 12/05/16 - History Present History: Cannabis Dependence, Opioid Dependence, Sedative Dependence - Physical Exam Results Vital Signs: Vital Signs Temperature 97.5 F L 12/05/16 14:11 Pulse Rate 79 12/05/16 14:11 Respiratory Rate 18 12/05/16 14:11 Blood Pressure 98/59 12/05/16 14:11 O2 Sat by Pulse Oximetry (%) - Treatment Hospital Course: Detox Protocol Followed - Medication Discharge Medications: Ambulatory Orders Aripiprazole [Abilify -] 15 mg PO DAILY 10/20/16 Gore Carbonate [Eskalith -] 900 mg PO HS 10/20/16 Trazodone HCl [Desyrel -] 100 mg PO HS 10/20/16 Albuterol Sulfate Inhaler - [Ventolin HFA Inhaler -] 2 puff IH Q6H PRN #1 inhaler 10/25/16 Gabapentin [Neurontin -] 300 mg PO DAILY #30 cap 10/25/16 - Diagnosis (1) Cannabis dependence Current Visit: Yes Status: Chronic (2) Nicotine dependence Current Visit: Yes Status: Chronic Qualifiers: Nicotine product type: cigarettes Substance use status: uncomplicated Qualified Code(s): F17.210 - Nicotine dependence, cigarettes, uncomplicated (3) Opioid dependence with withdrawal Current Visit: Yes Status: Chronic (4) Sedative, hypnotic or anxiolytic dependence with withdrawal, uncomplicated Current Visit: Yes Status: Chronic (5) Asthma Current Visit: Yes Status: Chronic Qualifiers: Asthma severity: mild intermittent (6) Bipolar disorder Current Visit: Yes Status: Chronic Qualifiers: Current episode severity: unspecified (7) Anxiety and depression Current Visit: Yes Status: Chronic (8) Cocaine dependence Current Visit: Yes Status: Chronic Qualifiers: Substance use status: uncomplicated Qualified Code(s): F14.20 - Cocaine dependence, uncomplicated - AMA Did Patient Leave Against Medical Advice: Yes (pt states shes cured -she's going home. )
[2016-12-05] MEDS ORDERED: THIAMINE HCL 100 MG TABLET (FP) PO SCH (22:00)
[2016-12-05] MEDS ORDERED: LITHIUM CARBONATE 300 MG CAPSULE (FP) PO SCH (22:00)
[2016-12-06] MEDS ORDERED: chlordiazePOXIDE HCL 25 MG CAPSULE PO SCH (05:00)
[2016-12-06] MEDS ORDERED: METHADONE HCL 5 MG TABLET (FOR DETOX USE ONLY) PO SCH (10:00)
[2016-12-06] MEDS ORDERED: LITHIUM CARBONATE 300 MG CAPSULE (FP) PO SCH (10:00)
[2016-12-06] MEDS ORDERED: ARIPiprazole 15 MG TABLET PO SCH (10:00)
[2016-12-07] MEDS ORDERED: chlordiazePOXIDE 5 MG CAPSULE PO SCH (05:00)
[2016-12-07] MEDS ORDERED: METHADONE HCL 5 MG TABLET (FOR DETOX USE ONLY) PO SCH (10:00)
[2016-12-08] MEDS ORDERED: chlordiazePOXIDE HCL 10 MG CAPSULE PO SCH (05:00)
[2016-12-09] MEDS ORDERED: METHADONE HCL 10 MG TABLET (FOR DETOX USE ONLY) PO SCH (10:00)
[2016-12-10] MEDS ORDERED: METHADONE HCL 10 MG TABLET (FOR DETOX USE ONLY) PO SCH (06:00)
== END 2016-12-05 16:45 | disposition left against medical advice (07) | DRG 770 ==
LOC: YASAS 06:48 → Y6N 06:50
PROVIDERS: ADMIT Internal Medicine; ATTEND Internal Medicine
PROC: HZ2ZZZZ Detoxification Services for Substance Abuse Treatment (ICD-10-PCS; principal; 2016-12-05)
DX: F11.23 Opioid dependence with withdrawal (principal); F13.230 Sedative, hypnotic or anxiolytic dependence with withdrawal, uncomplicated; F14.20 Cocaine dependence, uncomplicated; F12.20 Cannabis dependence, uncomplicated; F17.210 Nicotine dependence, cigarettes, uncomplicated; F31.9 Bipolar disorder, unspecified; F41.8 Other specified anxiety disorders; F43.10 Post-traumatic stress disorder, unspecified; F19.24 Other psychoactive substance dependence with psychoactive substance-induced mood disorder; J45.909 Unspecified asthma, uncomplicated; G47.00 Insomnia, unspecified; R00.0 Tachycardia, unspecified
CPT/HCPCS: 36415; 80053; 81003; 81015; 85027; 86593; 93005; 93010; 94640

== ENCOUNTER 2017-01-17 08:16 | Inpatient (IN) | payer OTHER ==
[2017-01-17 08:51] VITALS: BMI 25.2
--- NOTE | 2017-01-17 09:08 | HP ---
COWS - Scale Resting Pulse: 0= [place] 80 or Below Sweatin=Flushed/Facial Moisture Restless Observation: 3= Extraneous Movement Pupil Size: 2= Moderately Dilated Bone or Joint Aches: 2= Severe Diffuse Aches Runny Nose/ Eye Tearin= Runny Nose/Eyes GI Upset > 30mins: 3= Vomiting/Diarrhea Tremor Observation: 2= Slight Tremor Visible Yawning Observation: 2= >3x During Session Anxiety or Irritability: 2=Irritable/Anxious Goose Flesh Skin: 0=Smooth Skin COWS Score: 20 CIWA Score - CIWA Score Nausea/Vomitin Muscle Tremors: 3 Anxiety: 3 Agitation: 3 Paroxysmal Sweats: 2 Orientation: 0-Oriented Tacttile Disturbances: 2-Mild Itch/Numbness/Burn Auditory Disturbances: 2-Mild Harshness/Frighten Visual Disturbances: 2-Mild Sensitivity Headache: 2-Mild CIWA-Ar Total Score: 22 Admission ROS BHS - HPI Chief Complaint: i am here to get better,sopped using drugs that i can take care of my son Allergies/Adverse Reactions: Allergies Allergy/AdvReac Type Severity Reaction Status Date / Time Sulfa (Sulfonamide Allergy Severe Rash Verified 12/05/16 07:40 Antibiotics) History of Present Illness: this 21 years old female with multiple drugs dependence and alcohol dependence, seeking help to stop using ,last treatment 12/05/16 [facility] not completed depression bipolar and anxiety nicotine dependence longest period of sobriety 2 years plan to go to rehab after detox several admissions in detox but keep relapsing Exam Limitations: No Limitations - Ebola screening Have you traveled outside of the country in the last 21 days: No Have you had contact with anyone from an Ebola affected area: No Have you been sick,other than usual withdrawal symptoms: No Do you have a fever: No - Review of Systems Constitutional: Chills, Diaphoresis, Loss of Appetite, Malaise, Night Sweats, Changes in sleep, Weakness, Unintentional Wgt. Loss EENT: reports: Tearing, Nose Congestion Respiratory: reports: No Symptoms reported, Other (asthma) Cardiac: reports: Palpitations GI: reports: Diarrhea, Nausea, Vomiting, Abdominal cramping : reports: No Symptoms Reported Musculoskeletal: reports: Back Pain, Joint Pain, Muscle Pain, Joint Stiffness Integumentary: reports: Dryness Neuro: reports: Headache, Tremors Endocrine: reports: No Symptoms Reported Hematology: reports: No Symptoms Reported Psychiatric: reports: Judgement Intact, Anxious (bipolar disorder), Depressed Patient History - Patient Medical History Hx Anemia: No Hx Asthma: Yes (on albuterol inhaler) Hx Chronic Obstructive Pulmonary Disease (COPD): No Hx Cancer: No Hx Cardiac Disorders: No Hx Congestive Heart Failure: No Hx Hypertension: No Hx Hypercholesterolemia: No Hx Pacemaker: No HX Cerebrovascular Accident: No Hx Seizures: No Hx Dementia: No Hx Diabetes: No Hx Gastrointestinal Disorders: No Hx Liver Disease: No Hx Genitourinary Disorders: No Hx Sexually Transmitted Disorders: No Hx Renal Disease (ESRD): No Hx Thyroid Disease: No Hx Human Immunodeficiency Virus (HIV): No (last 11/22 negative) Hx Hepatitis C: No Hx Depression: Yes Hx Suicide Attempt: No Hx Bipolar Disorder: Yes Hx Schizophrenia: No Other Medical History: no suicidal,no homicidal - Patient Surgical History Past Surgical History: Yes Hx Neurologic Surgery: No Hx Cataract Extraction: No Hx Cardiac Surgery: No Hx Lung Surgery: No Hx Breast Surgery: No Hx Breast Biopsy: No Hx Abdominal Surgery: No Hx Appendectomy: No Hx Cholecystectomy: No Hx Genitourinary Surgery: No Hx Section: Yes (2013) Hx Orthopedic Surgery: No Anesthesia Reaction: No - PPD History Previous Implant?: Yes Documented Results: Negative w/proof Implanted On Prior [facility] Admission?: Yes Date: 02/09/16 Results: 0 MM PPD to be Administered?: No - Reproductive History Patient is a Female of Child Bearing Age (11 -55 yrs old): Yes Last Menstrual Period: 01/12/17 Patient : No - Smoking Cessation Smoking history: Current every day smoker Have you smoked in the past 12 months: Yes Aproximately how many cigarettes per day: 20 Cigars Per Day: 0 Hx Chewing Tobacco Use: No Initiated information on smoking cessation: Yes 'Breaking Loose' booklet given: 01/17/17 - Substance & Tx. History Hx Alcohol Use: Yes Hx Substance Use: Yes Substance Use Type: Alcohol, Cocaine, Heroin, Tranquilizers Hx Substance Use Treatment: Yes ([facility] 12/05/16 not completed) - Substances Abused Heroin Route: Injection Frequency: Daily Amount used: 10 bags Age of first use: 10 Date of Last Use: 01/16/17 Alcohol Route: Oral Frequency: Daily Amount used: 1pint of vodka/2 of 12 ozs Age of first use: 10 Date of Last Use: 01/16/17 Cocaine Route: Smoking Frequency: Daily Amount used: 200$ Age of first use: 12 Date of Last Use: 01/16/17 Alprazolam (Xanax) Route: Oral Frequency: 1-2 times per week Amount used: 4mgs Age of first use: 12 Date of Last Use: 01/15/17 Marijuana/Hashish Route: Smoking Frequency: Daily Amount used: 20$ Age of first use: 10 Date of Last Use: 01/16/17 Family Disease History - Family Disease History Family Disease History: Diabetes: Grandparent, Mother (HEROIN/ CRACK/COCAINE), Other: Father (HEROIN & ALCOHOL), Mother Admission Physical Exam [facility] - Vital Signs Vital Signs: Vital Signs - 24 hr 01/17/17 08:46 Temperature 96.4 F L Pulse Rate 64 Respiratory 20 Rate Blood Pressure 103/68 - Physical General Appearance: Yes: Moderate Distress, Tremorous, Irritable, Sweating, Anxious HEENTM: Yes: Hearing grossly Normal, Normal ENT Inspection, Pharynx Normal Respiratory: Yes: Lungs Clear, Normal Breath Sounds, No Respiratory Distress Neck: Yes: Within Normal Limits Breast: Yes: Breast Exam Deferred Cardiology: Yes: Within Normal Limits, Regular Rhythm, Regular Rate, S1, S2 Abdominal: Yes: Within Normal Limits, Normal Bowel Sounds, Non Tender, Flat, Soft, Surgical Scar Genitourinary: Yes: Within Normal Limits Back: Yes: Muscle Spasm Musculoskeletal: Yes: full range of Motion, Back pain, Joint Stiffness, Muscle Pain Extremities: Yes: Normal Range of Motion, Tremors, Swelling, Erythema, Inflammation, Other (swelling with pain right forearm abscess,also left forearm) Neurological: Yes: Within Normal Limits, vice president network II-XII NML intact, Fully Oriented, Alert, Motor Strength 5/5 Integumentary: Yes: Dry, Track [place] Lymphatic: Yes: Within Normal Limits - Diagnostic (1) Anxiety and depression Current Visit: No Status: Chronic (2) Asthma Current Visit: No Status: Chronic Qualifiers: Asthma severity: mild intermittent (3) Bipolar I disorder Current Visit: No Status: Chronic (4) Cannabis dependence Current Visit: No Status: Chronic (5) Cocaine dependence Current Visit: No Status: Chronic Qualifiers: Substance use status: uncomplicated Qualified Code(s): F14.20 - Cocaine dependence, uncomplicated (6) Nicotine dependence Current Visit: No Status: Chronic Qualifiers: Nicotine product type: cigarettes Substance use status: uncomplicated Qualified Code(s): F17.210 - Nicotine dependence, cigarettes, uncomplicated (7) Opioid dependence with withdrawal Current Visit: No Status: Chronic (8) Sedative, hypnotic or anxiolytic dependence with withdrawal, uncomplicated Current Visit: No Status: Chronic (9) Alcohol dependence with uncomplicated withdrawal Current Visit: Yes Status: Acute (10) Cellulitis Current Visit: Yes Status: Acute (11) Abscess Current Visit: Yes Status: Acute Cleared for Admission S - Detox or Rehab [facility] Level of Care: Medically Managed Detox Regimen/Protocol: Methadone/Valium S Breath Alcohol Content Breath Alcohol Content: 0 Urine Pregancy Test - Result Urine Test Results: Negative- NO Line Present Urine Drug Screen - Results Drug Screen Negative: No Urine Drug Screen Results: THC-Marijuana, SYDNEE-Cocaine, OPI-Opiates
[2017-01-17] MEDS ORDERED: ACETAMINOPHEN 325 MG TABLET (FP) PO PRN (09:27)
[2017-01-17] MEDS ORDERED: IBUPROFEN 400 MG TABLET (FP) PO PRN (09:27)
[2017-01-17] MEDS ORDERED: P-EPHED 60MG/TRIPROLIDI 2.5MG TABLET PO PRN (09:27)
[2017-01-17] MEDS ORDERED: MENTHOL/PHENOL 1 EACH UD MM PRN (09:27)
[2017-01-17] MEDS ORDERED: hydrOXYzine PAMOATE 25 MG CAPSULE (FP) PO PRN (09:27)
[2017-01-17] MEDS ORDERED: MAGNESIUM HYDROX 2400MG/30ML ORAL SUSPENSION 30 ML CUP PO PRN (09:27)
[2017-01-17] MEDS ORDERED: LOPERAMIDE HCL 2 MG CAPSULE PO PRN (09:27)
[2017-01-17] MEDS ORDERED: NICOTINE POLACRILEX 2 MG GUM BUC PRN (09:27)
[2017-01-17] MEDS ORDERED: diphenhydrAMINE HCL 50 MG CAPSULE PO PRN (09:27)
[2017-01-17] MEDS ORDERED: guaiFENesin/D-METHORPHAN HB 10 ML UNIT-DOSE CUPS PO PRN (09:27)
[2017-01-17] MEDS ORDERED: MAGNESIUM CITRATE 300 ML BOTTLE PO PRN (09:27)
[2017-01-17] MEDS ORDERED: MAG HYDROX/AL HYDROX/SIMETH 30 ML UNIT-DOSE CUP PO PRN (09:27)
[2017-01-17] MEDS ORDERED: ALBUTEROL SO4 6.7 GM HFA INHALER IH PRN (09:33)
[2017-01-17] MEDS ORDERED: diazePAM 5 MG TABLET PO ONE (09:43)
[2017-01-17] MEDS ORDERED: METHADONE HCL 10 MG TABLET (FOR DETOX USE ONLY) PO ONE ×2 (09:44→23:00)
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
[2017-01-17] MEDS: CEPHALEXIN MONOHYDRATE 500 MG CAPSULE (UD) PO SCH ×3 (11:07→23:03)
[2017-01-17] MEDS: NICOTINE 21 MG/24 HOURS TOPICAL PATCH TD SCH (11:08)
[2017-01-17] MEDS: CYCLOBENZAPRINE HCL 10 MG TABLET (FP) PO PRN ×2 (11:08→21:00)
[2017-01-17] MEDS: PRENATAL VITAMINS W/ FOLIC ACID TABLET (FP) PO SCH (11:08)
[2017-01-17] MEDS: cloNIDine HCL 0.1 MG TABLET PO SCH ×2 (11:10→21:02)
--- NOTE | 2017-01-17 13:02 | EKG ---
Test Reason : Blood Pressure : / mmHG Vent. Rate : 068 BPM Atrial Rate : 068 BPM P-R Int : 108 ms QRS Dur : 084 ms QT Int : 376 ms P-R-T Axes : 012 082 057 degrees QTc Int : 399 ms SINUS RHYTHM WITH SHORT TN OTHERWISE NORMAL ECG WHEN COMPARED WITH ECG OF 05-DEC-2016 06:33, NO SIGNIFICANT CHANGE WAS FOUND Confirmed by MONSERRAT HERNANDEZ MD ([id number]) on 01/17/2017 1:01:47 PM Referred By: Confirmed By:MONSERRAT HERNANDEZ MD
[2017-01-17 14:51] LABS: URINE APPEARANCE CLEAR; URINE BILIRUBIN NEGATIVE (NEGATIVE); URINE COLOR YELLOW; URINE GLUCOSE (UA) NEGATIVE (NEGATIVE); URINE KETONE NEGATIVE (NEGATIVE); URINE LEUK ESTERASE NEGATIVE (NEGATIVE); URINE NITRITE NEGATIVE (NEGATIVE); URINE PROTEIN NEGATIVE (NEGATIVE); URINE UROBILINOGEN NEGATIVE E.U./dl (0.2-1.0)
[2017-01-17] MEDS: diazePAM 5 MG TABLET PO SCH ×2 (14:52→21:01)
[2017-01-17 14:55] LABS: URINE BLOOD 1+ (NEGATIVE)
[2017-01-17 15:09] LABS: URINE MUCUS RARE; URINE RBC 3 /hpf (0-3); URINE WBC 7 /hpf (3-5)
[2017-01-17 15:38] LABS: HIV 1 & 2 AB NEGATIVE; HIV 1 AGp24 NEGATIVE
[2017-01-17] MEDS: THIAMINE HCL 100 MG TABLET (FP) PO SCH (21:01)
[2017-01-17] MEDS: MIRTAZAPINE 15 MG TABLET (FP) PO SCH (21:02)
[2017-01-18] MEDS: CEPHALEXIN MONOHYDRATE 500 MG CAPSULE (UD) PO SCH ×4 (06:25→23:03)
[2017-01-18] MEDS: diazePAM 5 MG TABLET PO SCH ×3 (06:37→22:38)
--- NOTE | 2017-01-18 08:29 | PN ---
Psychiatric Progress Note Vital Signs: Vital Signs Period Temp Pulse Resp BP Sys/Navarro Pulse Ox Last 24 Hr 96.4 F-101.3 F 63-100 16-20 90-103/50-69 Date of Session: 01/18/17 Chief Complaint:: my medications HPI: Patient reports taking prior to admission [place] 900mg po qhs for a long time, asking to restart [place]. Lithioum level is pending, Current Medications: Active Medications Generic Name Dose Route Start Last Admin Trade Name Freq PRN Reason Stop Dose Admin Acetaminophen 650 mg 01/17/17 09:27 01/17/17 20:57 Tylenol - PO 650 mg Q4H PRN Administration FEVER OR PAIN Al Hydroxide/Mg Hydroxide 30 ml 01/17/17 09:27 Mylanta Oral Suspension - PO Q6H PRN DYSPEPSIA Albuterol Sulfate 2 puff 01/17/17 09:33 Ventolin Hfa Inhaler - IH Q4H PRN SHORT OF BREATH/WHEEZING Aripiprazole 10 mg 01/18/17 10:00 Abilify PO DAILY MELODY Cephalexin HCl 500 mg 01/17/17 12:00 01/18/17 06:25 Keflex - PO 500 mg Q6HPO MELODY Administration Clonidine 0.1 mg 01/17/17 10:00 01/17/17 21:02 Catapres - PO 0.1 mg BID MELODY Administration Cyclobenzaprine HCl 10 mg 01/17/17 09:31 01/17/17 21:00 Flexeril - PO 10 mg TID PRN Administration MUSCLE SPASMS Diazepam 10 mg 01/17/17 09:27 Valium - PO 01/20/17 09:27 Q4H PRN WITHDRAWAL(CONT SUBST) Diazepam 5 mg 01/17/17 14:00 01/18/17 06:37 Valium - PO 01/18/17 22:01 Not Given TID MELODY Diazepam 5 mg 01/19/17 10:00 Valium - PO 01/20/17 22:01 BID MELODY Diazepam 5 mg 01/21/17 10:00 Valium - PO 01/21/17 10:01 DAILY MELODY Diphenhydramine HCl 50 mg 01/17/17 09:27 Benadryl - PO HSMR1 PRN INSOMNIA Eucalyptus/Menthol/Phenol/Sorbitol 1 each 01/17/17 09:27 Cepastat Lozenge - MM Q4H PRN SORE THROAT Guaifenesin 10 ml 01/17/17 09:27 Robitussin Dm - PO Q6H PRN COUGH Hydroxyzine Pamoate 25 mg 01/17/17 09:27 Vistaril - PO Q4H PRN AGITATION Ibuprofen 400 mg 01/17/17 09:27 Motrin - PO Q6H PRN SEVERE PAIN Loperamide HCl 4 mg 01/17/17 09:27 Imodium - PO Q6H PRN DIARRHEA Magnesium Citrate 300 ml 01/17/17 09:27 Citroma - PO Q48H PRN CONSTIPATION Magnesium Hydroxide 30 ml 01/17/17 09:27 Milk Of Magnesia - PO DAILY PRN CONSTIPATION Methadone HCl 20 mg 01/18/17 10:00 Dolophine - PO 01/18/17 10:01 DAILY MELODY Methadone HCl 10 mg 01/21/17 10:00 Dolophine - PO 01/21/17 10:01 DAILY MELODY Methadone HCl 15 mg 01/19/17 10:00 Dolophine - PO 01/20/17 10:01 DAILY MELODY Methadone HCl 5 mg 01/22/17 06:00 Dolophine - PO 01/22/17 06:01 DAILY@0600 MELODY Mirtazapine 7.5 mg 01/17/17 22:00 01/17/17 21:02 Remeron - PO 7.5 mg HS MELODY Administration Nicotine 21 mg 01/17/17 10:00 01/17/17 11:08 Nicoderm Patch - TD 21 mg DAILY MELODY Administration Nicotine Polacrilex 2 mg 01/17/17 09:27 Nicorette Gum - BUC Q2H PRN NICOTINE REPLACEMENT RX Multivit/Folic Acid/Iron 1 tab 01/17/17 10:00 01/17/17 11:08 Vitamins (Sjr) - PO 1 tab DAILY MELODY Administration Pseudoephedrine/Triprolidine 1 combo 01/17/17 09:27 Actifed - PO TID PRN NASAL CONGESTION Thiamine HCl 100 mg 01/17/17 22:00 01/17/17 21:01 Vitamin B1 - PO 100 mg HS MELODY Administration Medication(s) Change(s): Start lithium after Blood [place] Level done Mental Status Exam - Mental Status Exam Alert and Oriented to: Person Cognitive Function: Fair Patient Appearance: Well Groomed, Unkempt Mood: Depressed Affect: Flat Patient Behavior: Sedated Speech Pattern: Delayed Voice Loudness: Mildly Soft/Quiet Thought Process: Circumstantial Thought Disorder: Being Controlled Hallucinations: Denies Suicidal Ideation: Denies Homicidal Ideation: Denies Insight/Judgement: Fair Sleep: Difficulty falling asleep Appetite: Weight gain Muscle strength/Tone: Moderate Hypotonicity Gait/Station: Shuffling Additional Comments: Start bLithium after checking Blood level results Psychiatric Treatment Plan - Problem List (1) Alcohol dependence with uncomplicated withdrawal Current Visit: Yes (2) Cannabis dependence Current Visit: Yes (3) Cocaine dependence Current Visit: Yes Qualifiers: Substance use status: uncomplicated Qualified Code(s): F14.20 - Cocaine dependence, uncomplicated (4) Nicotine dependence Current Visit: Yes Qualifiers: Nicotine product type: cigarettes Substance use status: uncomplicated Qualified Code(s): F17.210 - Nicotine dependence, cigarettes, uncomplicated (5) Opioid dependence with withdrawal Current Visit: Yes (6) Sedative, hypnotic or anxiolytic dependence with withdrawal, uncomplicated Current Visit: Yes (7) Substance induced mood disorder Current Visit: Yes (8) Bipolar disorder Current Visit: Yes Qualifiers: Current episode severity: unspecified (9) PTSD (post-traumatic stress disorder) Current Visit: Yes Comment: By history. (10) Bipolar I disorder Current Visit: No
[2017-01-18 09:56] LABS: MCH 28.5 pg (25.7-33.7); MCHC 32.7 g/dl (32.0-36.0); MEAN CELL VOLUME 87.3 fl (80-96); MEAN PLT VOLUME 9.5 fl (7.5-11.1); PLATELET COUNT 387 K/MM3 (134-434); WHITE BLOOD COUNT 11.3 K/mm3 (4.0-10.0)
[2017-01-18] MEDS ORDERED: METHADONE HCL 10 MG TABLET (FOR DETOX USE ONLY) PO SCH (10:00)
[2017-01-18] MEDS: PRENATAL VITAMINS W/ FOLIC ACID TABLET (FP) PO SCH (10:04)
[2017-01-18] MEDS: cloNIDine HCL 0.1 MG TABLET PO SCH ×2 (10:05→22:39)
[2017-01-18] MEDS: NICOTINE 21 MG/24 HOURS TOPICAL PATCH TD SCH (10:05)
[2017-01-18] MEDS: ARIPiprazole 10 MG TABLET PO SCH (10:05)
[2017-01-18] MEDS: CYCLOBENZAPRINE HCL 10 MG TABLET (FP) PO PRN (10:07)
[2017-01-18 10:18] LABS: ALBUMIN 3.9 g/dl (3.4-5.0); ALK PHOS 68 U/L (45-117); ANION GAP 7 (8-16); BILIRUBIN,TOTAL 0.4 mg/dL (0.2-1.0); CALCIUM 9.2 mg/dL (8.5-10.1); CO2 27 mmol/L (21-32); CREATININE 0.9 mg/dL (0.55-1.02); GLUCOSE,RANDOM 98 mg/dL (74-106); SGOT/AST 8 U/L (15-37); SGPT/ALT 15 U/L (12-78); TOT PROT 7.4 g/dl (6.4-8.2)
--- NOTE | 2017-01-18 10:45 | PN ---
[facility] CIWA - CIWA Score Nausea/Vomitin-Mild Nausea/No Vomiting Muscle Tremors: 2 Anxiety: 4-Mod. Anxious/Guarded Agitation: 0-Normal Activity Paroxysmal Sweats: 3 Orientation: 2-Disoriented Date<2 days Tacttile Disturbances: 3-Moderate Itch/Numb/Burn Auditory Disturbances: 0-None Visual Disturbances: 0-None Headache: 3-Moderate CIWA-Ar Total Score: 18 BHS COWS - Scale Resting Pulse: 1= [place] 81-100 Sweatin= Chills/Flushing Restless Observation: 0= Sits Still Pupil Size: 0= Normal to Room Light Bone or Joint Aches: 2= Severe Diffuse Aches Runny Nose/ Eye Tearin= Nasal Congestion GI Upset > 30mins: 1= Stomach Cramp Tremor Observation of Outstretched Hands: 2= Slight Tremor Visible Yawning Observation: 2= >3x During Session Anxiety or Irritability: 2=Irritable/Anxious Goose Flesh Skin: 3=Piloerection COWS Score: 15 S Progress Note (SOAP) Subjective: Stomach Cramping, Body Aches, H/A, Sweating, Interrupted sleep. Objective: PT. A & O X 2 (DISORIENTED ABOUT DAY /DATE). PT. OBSERVED AMBULATING ON UNIT. NO ACUTE DISTRESS. 01/18/17 10:42 Vital Signs Temperature 97.9 F 01/18/17 09:48 Pulse Rate 84 01/18/17 09:48 Respiratory Rate 16 01/18/17 09:48 Blood Pressure 97/65 01/18/17 09:48 O2 Sat by Pulse Oximetry (%) Laboratory Tests 01/17/17 01/17/17 01/18/17 10:00 12:00 06:00 WBC 11.3 H RBC 4.86 Hgb 13.8 Hct 42.4 MCV 87.3 MCH 28.5 MCHC 32.7 RDW 14.0 Plt Count 387 MPV 9.5 D Sodium Potassium Chloride Carbon Dioxide Anion Gap BUN Creatinine Creat Clearance w eGFR Random Glucose Calcium Total Bilirubin AST ALT Alkaline Phosphatase Total Protein Albumin Urine Color Yellow Urine Appearance Clear Urine pH 5.0 Ur Specific [place] 1.020 Urine Protein Negative Urine Glucose (UA) Negative Urine Ketones Negative Urine Blood 1+ H Urine Nitrite Negative Urine Bilirubin Negative Urine Urobilinogen Negative Ur Leukocyte Esterase Negative Urine RBC 3 Urine WBC 7 Ur Epithelial Cells Rare Urine Mucus Rare HIV 1&2 Antibody Screen Negative HIV P24 Antigen Negative 01/18/17 06:00 WBC RBC Hgb Hct MCV MCH MCHC RDW Plt Count MPV Sodium 140 Potassium 4.6 Chloride 106 Carbon Dioxide 27 Anion Gap 7 L BUN 15 D Creatinine 0.9 D Creat Clearance w eGFR > 60 Random Glucose 98 Calcium 9.2 Total Bilirubin 0.4 AST 8 L D ALT 15 Alkaline Phosphatase 68 Total Protein 7.4 Albumin 3.9 Urine Color Urine Appearance Urine pH Ur Specific [place] Urine Protein Urine Glucose (UA) Urine Ketones Urine Blood Urine Nitrite Urine Bilirubin Urine Urobilinogen Ur Leukocyte Esterase Urine RBC Urine WBC Ur Epithelial Cells Urine Mucus HIV 1&2 Antibody Screen HIV P24 Antigen LABS NOTED. 01/18/17 10:47 Assessment: 01/18/17 10:43 WITHDRAWAL SYMPTOMS. Plan: CONTINUE DETOX. INCREASE PO FLUID INTAKE.
[2017-01-18] MEDS: THIAMINE HCL 100 MG TABLET (FP) PO SCH (22:37)
[2017-01-18] MEDS: MIRTAZAPINE 15 MG TABLET (FP) PO SCH (22:38)
[2017-01-19] MEDS: CEPHALEXIN MONOHYDRATE 500 MG CAPSULE (UD) PO SCH ×4 (06:09→23:13)
[2017-01-19] MEDS: PRENATAL VITAMINS W/ FOLIC ACID TABLET (FP) PO SCH (10:29)
[2017-01-19] MEDS: ARIPiprazole 10 MG TABLET PO SCH (10:29)
[2017-01-19] MEDS: METHADONE HCL 5 MG TABLET (FOR DETOX USE ONLY) PO SCH (10:30)
[2017-01-19] MEDS: cloNIDine HCL 0.1 MG TABLET PO SCH ×2 (10:30→22:25)
[2017-01-19] MEDS: diazePAM 5 MG TABLET PO SCH ×2 (10:30→22:24)
[2017-01-19] MEDS: NICOTINE 21 MG/24 HOURS TOPICAL PATCH TD SCH (10:30)
[2017-01-19] MEDS: CYCLOBENZAPRINE HCL 10 MG TABLET (FP) PO PRN (10:33)
--- NOTE | 2017-01-19 10:38 | PN ---
[facility] CIWA - CIWA Score Nausea/Vomitin-No Nausea/No Vomiting Muscle Tremors: 4-Moderate,w/Arms Extend Anxiety: 4-Mod. Anxious/Guarded Agitation: 4-Moderately Restless Paroxysmal Sweats: 1-Minimal Palms Moist Orientation: 0-Oriented Tacttile Disturbances: 3-Moderate Itch/Numb/Burn Auditory Disturbances: 0-None Visual Disturbances: 0-None Headache: 0-None Present CIWA-Ar Total Score: 16 S COWS - Scale Resting Pulse: 1= [place] 81-100 Sweatin= Chills/Flushing Restless Observation: 3= Extraneous Movement Pupil Size: 2= Moderately Dilated Bone or Joint Aches: 2= Severe Diffuse Aches Runny Nose/ Eye Tearin= Nasal Congestion GI Upset > 30mins: 0= None Tremor Observation of Outstretched Hands: 2= Slight Tremor Visible Yawning Observation: 2= >3x During Session Anxiety or Irritability: 2=Irritable/Anxious Goose Flesh Skin: 0=Smooth Skin COWS Score: 16 S Progress Note (SOAP) Subjective: IRRITABILITY,ANXIETY,RESTLESSNESS. Objective: 01/19/17 10:43 Vital Signs Temperature 98 F 01/19/17 06:24 Pulse Rate 75 01/19/17 06:24 Respiratory Rate 18 01/19/17 06:24 Blood Pressure 94/53 01/19/17 06:24 O2 Sat by Pulse Oximetry (%) Laboratory Last Values WBC 11.3 K/mm3 (4.0-10.0) H 01/18/17 06:00 RBC 4.86 M/mm3 (3.60-5.2) 01/18/17 06:00 Hgb 13.8 GM/dL (10.7-15.3) 01/18/17 06:00 Hct 42.4 % (32.4-45.2) 01/18/17 06:00 MCV 87.3 fl (80-96) 01/18/17 06:00 MCH 28.5 pg (25.7-33.7) 01/18/17 06:00 MCHC 32.7 g/dl (32.0-36.0) 01/18/17 06:00 RDW 14.0 % (11.6-15.6) 01/18/17 06:00 Plt Count 387 K/MM3 (134-434) 01/18/17 06:00 MPV 9.5 fl (7.5-11.1) D 01/18/17 06:00 Sodium 140 mmol/L (136-145) 01/18/17 06:00 Potassium 4.6 mmol/L (3.5-5.1) 01/18/17 06:00 Chloride 106 mmol/L (98-107) 01/18/17 06:00 Carbon Dioxide 27 mmol/L (21-32) 01/18/17 06:00 Anion Gap 7 (8-16) L 01/18/17 06:00 BUN 15 mg/dL (7-18) D 01/18/17 06:00 Creatinine 0.9 mg/dL (0.55-1.02) D 01/18/17 06:00 Creat Clearance w eGFR > 60 (>60) 01/18/17 06:00 Random Glucose 98 mg/dL (74-106) 01/18/17 06:00 Calcium 9.2 mg/dL (8.5-10.1) 01/18/17 06:00 Total Bilirubin 0.4 mg/dL (0.2-1.0) 01/18/17 06:00 AST 8 U/L (15-37) L D 01/18/17 06:00 ALT 15 U/L (12-78) 01/18/17 06:00 Alkaline Phosphatase 68 U/L (45-117) 01/18/17 06:00 Total Protein 7.4 g/dl (6.4-8.2) 01/18/17 06:00 Albumin 3.9 g/dl (3.4-5.0) 01/18/17 06:00 Urine Color Yellow 01/17/17 12:00 Urine Appearance Clear 01/17/17 12:00 Urine pH 5.0 (5.0-8.0) 01/17/17 12:00 Ur Specific [place] 1.020 (1.005-1.025) 01/17/17 12:00 Urine Protein Negative (NEGATIVE) 01/17/17 12:00 Urine Glucose (UA) Negative (NEGATIVE) 01/17/17 12:00 Urine Ketones Negative (NEGATIVE) 01/17/17 12:00 Urine Blood 1+ (NEGATIVE) H 01/17/17 12:00 Urine Nitrite Negative (NEGATIVE) 01/17/17 12:00 Urine Bilirubin Negative (NEGATIVE) 01/17/17 12:00 Urine Urobilinogen Negative mg/dL (0.2-1.0) 01/17/17 12:00 Ur Leukocyte Esterase Negative (NEGATIVE) 01/17/17 12:00 Urine RBC 3 /hpf (0-3) 01/17/17 12:00 Urine WBC 7 /hpf (3-5) 01/17/17 12:00 Ur Epithelial Cells Rare /hpf (FEW) 01/17/17 12:00 Urine Mucus Rare 01/17/17 12:00 RPR Titer Nonreactive (NONREACTIVE) 01/18/17 06:00 HIV 1&2 Antibody Screen Negative 01/17/17 10:00 HIV P24 Antigen Negative 01/17/17 10:00 LABS NOTED Assessment: 01/19/17 10:43 WITHDRAWAL SX Plan: CONTINUE DETOX
[2017-01-19] MEDS: diazePAM 5 MG TABLET PO PRN ×2 (13:55→17:34)
[2017-01-19] MEDS: THIAMINE HCL 100 MG TABLET (FP) PO SCH (22:24)
[2017-01-19] MEDS: MIRTAZAPINE 15 MG TABLET (FP) PO SCH (22:25)
[2017-01-20] MEDS: CEPHALEXIN MONOHYDRATE 500 MG CAPSULE (UD) PO SCH ×2 (06:00→11:09)
[2017-01-20] MEDS: diazePAM 5 MG TABLET PO PRN (06:00)
--- NOTE | 2017-01-20 10:02 | PN ---
[facility] Progress Note (SOAP) Subjective: Shakes, sweats chills, pain Objective: 01/20/17 09:58 Vital Signs 01/20/17 01/20/17 01/20/17 03:28 06:00 09:04 Temperature 97.0 F L 98.1 F Pulse Rate 70 84 Respiratory 18 18 18 Rate Blood Pressure 101/56 104/79 Laboratory Last Values WBC 11.3 K/mm3 (4.0-10.0) H 01/18/17 06:00 RBC 4.86 M/mm3 (3.60-5.2) 01/18/17 06:00 Hgb 13.8 GM/dL (10.7-15.3) 01/18/17 06:00 Hct 42.4 % (32.4-45.2) 01/18/17 06:00 MCV 87.3 fl (80-96) 01/18/17 06:00 MCH 28.5 pg (25.7-33.7) 01/18/17 06:00 MCHC 32.7 g/dl (32.0-36.0) 01/18/17 06:00 RDW 14.0 % (11.6-15.6) 01/18/17 06:00 Plt Count 387 K/MM3 (134-434) 01/18/17 06:00 MPV 9.5 fl (7.5-11.1) D 01/18/17 06:00 Sodium 140 mmol/L (136-145) 01/18/17 06:00 Potassium 4.6 mmol/L (3.5-5.1) 01/18/17 06:00 Chloride 106 mmol/L (98-107) 01/18/17 06:00 Carbon Dioxide 27 mmol/L (21-32) 01/18/17 06:00 Anion Gap 7 (8-16) L 01/18/17 06:00 BUN 15 mg/dL (7-18) D 01/18/17 06:00 Creatinine 0.9 mg/dL (0.55-1.02) D 01/18/17 06:00 Creat Clearance w eGFR > 60 (>60) 01/18/17 06:00 Random Glucose 98 mg/dL (74-106) 01/18/17 06:00 Calcium 9.2 mg/dL (8.5-10.1) 01/18/17 06:00 Total Bilirubin 0.4 mg/dL (0.2-1.0) 01/18/17 06:00 AST 8 U/L (15-37) L D 01/18/17 06:00 ALT 15 U/L (12-78) 01/18/17 06:00 Alkaline Phosphatase 68 U/L (45-117) 01/18/17 06:00 Total Protein 7.4 g/dl (6.4-8.2) 01/18/17 06:00 Albumin 3.9 g/dl (3.4-5.0) 01/18/17 06:00 Urine Color Yellow 01/17/17 12:00 Urine Appearance Clear 01/17/17 12:00 Urine pH 5.0 (5.0-8.0) 01/17/17 12:00 Ur Specific [place] 1.020 (1.005-1.025) 01/17/17 12:00 Urine Protein Negative (NEGATIVE) 01/17/17 12:00 Urine Glucose (UA) Negative (NEGATIVE) 01/17/17 12:00 Urine Ketones Negative (NEGATIVE) 01/17/17 12:00 Urine Blood 1+ (NEGATIVE) H 01/17/17 12:00 Urine Nitrite Negative (NEGATIVE) 01/17/17 12:00 Urine Bilirubin Negative (NEGATIVE) 01/17/17 12:00 Urine Urobilinogen Negative mg/dL (0.2-1.0) 01/17/17 12:00 Ur Leukocyte Esterase Negative (NEGATIVE) 01/17/17 12:00 Urine RBC 3 /hpf (0-3) 01/17/17 12:00 Urine WBC 7 /hpf (3-5) 01/17/17 12:00 Ur Epithelial Cells Rare /hpf (FEW) 01/17/17 12:00 Urine Mucus Rare 01/17/17 12:00 RPR Titer Nonreactive (NONREACTIVE) 01/18/17 06:00 HIV 1&2 Antibody Screen Negative 01/17/17 10:00 HIV P24 Antigen Negative 01/17/17 10:00 Labs noted-elevated white count Rt forearm swelling, firm, tender and warm to touch, decreased function Assessment: 01/20/17 09:59 withdrawal sx rt forearm cellulitis Plan: transfer to ED for possible IV antibiotics given use of intravenous drugs
[2017-01-20] MEDS: PRENATAL VITAMINS W/ FOLIC ACID TABLET (FP) PO SCH (10:19)
[2017-01-20] MEDS: cloNIDine HCL 0.1 MG TABLET PO SCH (10:20)
[2017-01-20] MEDS: METHADONE HCL 5 MG TABLET (FOR DETOX USE ONLY) PO SCH (10:20)
[2017-01-20] MEDS: ARIPiprazole 10 MG TABLET PO SCH (10:20)
[2017-01-20] MEDS: diazePAM 5 MG TABLET PO SCH (10:20)
[2017-01-20] MEDS: NICOTINE 21 MG/24 HOURS TOPICAL PATCH TD SCH (10:22)
[2017-01-20] MEDS: CYCLOBENZAPRINE HCL 10 MG TABLET (FP) PO PRN (11:09)
[2017-01-20 13:28] VITALS: BP 107/77; PULSE 88; TEMP 97.5
[2017-01-20] MEDS ORDERED: GABAPENTIN 300 MG CAPSULE (FP) PO SCH (14:00)
--- NOTE | 2017-01-20 17:05 | HP ---
Admitting History and Physical - Admission Chief Complaint: RUE swelling, erythema, pain History of Present Illness: HPI This 21 year old female with pmhx asthma, bi polar, anxiety, nicotine dependence , multiple drug dependence (marijuana, crack, alcohol, opiates, cocaine, benzos) . One year ago she started using heroine, per [facility] record she uses 10 bags/ day, IV route last used on 01/16. She shoots to her bilateral arms, she only uses her own needles, does share from one site to the other, uses water to wet the needles. She is HIV negative (on 01/17) she went to [facility] seeking help to stop using, she was placed on methadone detox. When she arrived at [facility] (01/17) she as started on keflex 500mg q6hr for cellulitis to R arm Today, her RUE was noted to be increasingly firm, tender, warm to touch with decreased function, along with elevated WBC and she was sent to the ED. Abscess was drained in the ED at bedside. Patient reports cold and hot sweats, fever, chills, and feeling achy. She is constipated, last BM 2 days ago. History Source: Patient Limitations to Obtaining History: No Limitations - Past Medical History Pulmonary: Yes: Asthma ...LMP: 01/12/17 ...: No - Past Surgical History Past Surgical History: Yes: (2013) - Smoking History Smoking history: Current every day smoker Have you smoked in the past 12 months: Yes Aproximately how many cigarettes per day: 20 - Alcohol/Substance Use Hx Alcohol Use: Yes History of Substance Use: reports: Cocaine, Heroin, Marijuana (mother) - Social History Usual Living Arrangement: Yes: With Parent (mother) History of Recent Travel: No Home Medications - Allergies Allergies/Adverse Reactions: Allergies Allergy/AdvReac Type Severity Reaction Status Date / Time Sulfa (Sulfonamide Allergy Severe Rash Verified 01/20/17 12:52 Antibiotics) - Home Medications Home Medications: Ambulatory Orders [place] Carbonate [Eskalith -] 900 mg PO HS 10/20/16 Albuterol Sulfate Inhaler - [Ventolin HFA Inhaler -] 2 puff IH Q4H PRN 01/17/17 Aripiprazole [Abilify -] 15 mg PO DAILY #30 tablet 01/20/17 Gabapentin [Neurontin -] 300 mg PO TID #30 capsule 01/20/17 Mirtazapine [Remeron -] 15 mg PO HS #30 tablet 01/20/17 Family Disease History - Family Disease History Family Disease History: Diabetes: Grandparent, Mother (HEROIN/ CRACK/COCAINE), Other: Father (HEROIN & ALCOHOL), Mother Review of Systems - Review of Systems Constitutional: reports: Chills, Fever, Lethargy, Malaise Eyes: reports: No Symptoms HENT: reports: No Symptoms Neck: reports: No Symptoms Cardiovascular: reports: No Symptoms Respiratory: reports: No Symptoms Gastrointestinal: reports: No Symptoms Genitourinary: reports: No Symptoms Musculoskeletal: reports: Extremity Pain (rue) Integumentary: reports: Erythema Endocrine: reports: No Symptoms Physical Examination Vital Signs: Vital Signs Temperature 97.5 F L 01/20/17 13:28 Pulse Rate 88 01/20/17 13:28 Respiratory Rate 18 01/20/17 13:28 Blood Pressure 107/77 01/20/17 13:28 O2 Sat by Pulse Oximetry (%) Constitutional: Yes: Calm Eyes: Yes: Conjunctiva Clear HENT: Yes: Atraumatic Neck: Yes: Supple Cardiovascular: Yes: Regular Rate and Rhythm, S1, S2 Respiratory: Yes: Regular, CTA Bilaterally Gastrointestinal: Yes: Normal Bowel Sounds, Soft Renal/: Yes: WNL Breast(s): Yes: WNL Musculoskeletal: Yes: WNL Extremities: Yes: Erythema, Other (RUE swelling, abscess drained now packed, sanguinous, + tenderness) Edema: No Peripheral Pulses WNL: Yes Integumentary: Yes: Erythema, Incision Wound/Incision: Yes: Other (dressing intact, packed) Neurological: Yes: Alert, Oriented, Cran Nerves II-XII Intact, Lethargy ...Motor Strength: WNL Psychiatric: Yes: Alert, Oriented Labs: CBC, BMP 01/18/17 06:00 01/18/17 06:00 Problem List - Problems (1) Abscess Code(s): L02.91 - CUTANEOUS ABSCESS, UNSPECIFIED (2) Cannabis dependence Code(s): F12.20 - CANNABIS DEPENDENCE, UNCOMPLICATED (3) Cellulitis Code(s): L03.90 - CELLULITIS, UNSPECIFIED Qualifiers: Site of cellulitis: extremity Site of cellulitis of extremity: upper extremity Laterality: right Qualified Code(s): L03.113 - Cellulitis of right upper limb (4) Nicotine dependence Code(s): F17.200 - NICOTINE DEPENDENCE, UNSPECIFIED, UNCOMPLICATED Qualifiers : Nicotine product type: cigarettes Substance use status: uncomplicated Qualified Code(s): F17.210 - Nicotine dependence, cigarettes, uncomplicated (5) Opioid dependence with withdrawal Code(s): F11.23 - OPIOID DEPENDENCE WITH WITHDRAWAL (6) Asthma Code(s): J45.909 - UNSPECIFIED ASTHMA, UNCOMPLICATED Qualifiers: Asthma severity: mild intermittent (7) Bipolar disorder Code(s): F31.9 - BIPOLAR DISORDER, UNSPECIFIED Qualifiers: Current episode severity: unspecified (8) Anxiety and depression Code(s): F41.9 - ANXIETY DISORDER, UNSPECIFIED F32.9 - MAJOR DEPRESSIVE DISORDER, SINGLE EPISODE, UNSPECIFIED (9) Heroin abuse Code(s): F11.10 - OPIOID ABUSE, UNCOMPLICATED Assessment/Plan Assessment: 21 year old female, hx of multiple substance abuse, admitted from [facility] with RUE cellulitis and abscess for heroine IVDU Plan: 1. RUE abscess/cellulitis - Give Vanco x1 - Start zosyn - Xray RUE r/o gas - ECHO - HIV negative - Start NS 100cc/hr - Follow blood cx and wound cx 2. Substance abuse - Will need to compete detox here - Resume [facility] laurie rudolph consulted 3. Nicotine dependence - Nicotine patch 21mg daily
[2017-01-20] MEDS ORDERED: SODIUM CHLORIDE 1,000 ML IV SCH (17:30)
--- NOTE | 2017-01-20 17:55 | PN ---
[facility] Progress Note Note: Psychiatry Attending's note (delayed) : [place] level is still pending. Call made to lab : result not available. Figure Refinisher And Repairer contacted [facility] at [phone]. Spoke to pharmacist (with patient's verbal authorization) : Last script for lithium 900 mg/hs was filled out in April 2016. Ms Lovell does admit to non-adherence to lithium outside of hospital settings. She reports sporadic compliance with appointments with [facility] psychiatrist,Dr Flynn. Doing well on current regimen of abilify + gabapentin.Stable.Detox well tolerated. Will continue to hold lithium.Patient is instructed to return to Dr Flynn for follow-up. Patient agrees.
[2017-01-20] MEDS ORDERED: guaiFENesin/D-METHORPHAN HB 10 ML UNIT-DOSE CUPS PO PRN (18:06)
[2017-01-20] MEDS ORDERED: hydrOXYzine PAMOATE 25 MG CAPSULE (FP) PO PRN (18:07)
[2017-01-20] MEDS ORDERED: diazePAM 5 MG TABLET PO SCH (22:00)
[2017-01-21] MEDS ORDERED: METHADONE HCL 10 MG TABLET (FOR DETOX USE ONLY) PO SCH (10:00)
[2017-01-21] MEDS ORDERED: diazePAM 5 MG TABLET PO SCH ×3 (10:00)
[2017-01-22] MEDS ORDERED: METHADONE HCL 5 MG TABLET (FOR DETOX USE ONLY) PO SCH (06:00)
== END 2017-01-20 21:16 | disposition short-term general hospital (02) | DRG 773 ==
LOC: YASAS 08:16 → Y3N 09:37
PROVIDERS: ADMIT Internal Medicine; ATTEND Internal Medicine
PROC: HZ2ZZZZ Detoxification Services for Substance Abuse Treatment (ICD-10-PCS; principal; 2017-01-20)
DX: F11.23 Opioid dependence with withdrawal (principal); F13.230 Sedative, hypnotic or anxiolytic dependence with withdrawal, uncomplicated; F10.230 Alcohol dependence with withdrawal, uncomplicated; F14.20 Cocaine dependence, uncomplicated; F12.20 Cannabis dependence, uncomplicated; F17.210 Nicotine dependence, cigarettes, uncomplicated; F19.24 Other psychoactive substance dependence with psychoactive substance-induced mood disorder; F31.9 Bipolar disorder, unspecified; F43.10 Post-traumatic stress disorder, unspecified; G47.00 Insomnia, unspecified; J45.20 Mild intermittent asthma, uncomplicated
CPT/HCPCS: 36415; 80053; 80178; 81003; 81015; 85027; 86593; 87389; 93005; 93010

== ENCOUNTER 2017-01-20 12:43 | Inpatient (IN) | payer OTHER ==
--- NOTE | 2017-01-20 13:08 | PDOC ---
History of Present Illness - General Chief Complaint: Redness To Affected Area Stated Complaint: CELLULITIS Time Seen by Provider: 01/20/17 13:05 History Source: Patient Exam Limitations: No Limitations - History of Present Illness Initial Comments: 01/20/17 13:07 Patient is a 21 yo female with an extensive psychiatric and drug abuse history presenting from the [facility] with pain and redness to the right forearm that has not responded to 3 days of PO antibiotic (Keflex). Patient states that after injecting heroin into the arm a week ago with a dirty needle it became hard and tender. She was given keflex at the treatment center and has taken it four times a day for three days but her arm has not gotten any better and the treatment center advised her to come to the emergency department. The patient endorses routinely injecting heroin into both forearms but denies injecting into her veins or other areas of her body. She also endorses using crack cocaine routinely but denies having taken any drugs for the previous three days. Patient has a history of a hard to treat tooth infection. Past History - Past Medical History Allergies/Adverse Reactions: Allergies Allergy/AdvReac Type Severity Reaction Status Date / Time Sulfa (Sulfonamide Allergy Severe Rash Verified 01/20/17 12:52 Antibiotics) Home Medications: Ambulatory Orders [place] Carbonate [Eskalith -] 900 mg PO HS 10/20/16 Albuterol Sulfate Inhaler - [Ventolin HFA Inhaler -] 2 puff IH Q4H PRN 01/17/17 Aripiprazole [Abilify -] 15 mg PO DAILY #30 tablet 01/20/17 Gabapentin [Neurontin -] 300 mg PO TID #30 capsule 01/20/17 Mirtazapine [Remeron -] 15 mg PO HS #30 tablet 01/20/17 Anemia: No Asthma: Yes Cancer: No Cardiac Disorders: No CVA: No COPD: No CHF: No Dementia: No Diabetes: No GI Disorders: No Disorders: No HTN: No Hypercholesterolemia: No Kidney Stones: No Liver Disease: No Psychiatric Problems: Yes (BIPOLAR. DEPRESSION.) Suicide Attempt (Hx): No Seizures: No Thyroid Disease: No Other medical history: DRUG ADDICTION. ALCOHOLIC. - Surgical History Abdominal Surgery: Yes Appendectomy: No Cardiac Surgery: No Cholecystectomy: No Lung Surgery: No Neurologic Surgery: No Orthopedic Surgery: No - Reproductive History PID: No - Psycho/Social/Smoking Cessation Hx Anxiety: Yes Suicidal Ideation: No Smoking History: Current every day smoker Have you smoked in the past 12 months: Yes Number of Cigarettes Smoked Daily: 20 Cigars Per Day: 0 Information on smoking cessation initiated: No 'Breaking Loose' booklet given: 01/17/17 Hx Alcohol Use: Yes Drug/Substance Use Hx: Yes (HEROIN. CRACK COCAINE.) Substance Use Type: Alcohol, Cocaine, Heroin Hx Substance Use Treatment: Yes Review of Systems - Review of Systems Able to Perform ROS?: Yes Is the patient limited Mongolian proficient: No Constitutional: Yes: Fever (101.9 taken at treatment center), Malaise, Night Sweats. No: Chills Respiratory: Yes: Shortness of Breath Cardiac (ROS): No: Chest Pain ABD/GI: Yes: Constipated, Nausea. No: Vomiting, Other (abdominal pain) : No: Dysuria Musculoskeletal: Yes: Muscle Pain (right arm), Other (2x hard non painful lumps at injection sites in the left forearm). No: Joint Pain, Joint Stiffness *Physical Exam - Vital Signs Last Vital Signs Temp Pulse Resp BP Pulse Ox 98.2 F 82 18 101/65 100 01/20/17 12:45 01/20/17 12:45 01/20/17 12:45 01/20/17 12:45 01/20/17 12:45 - Physical Exam General Appearance: Yes: Nourished, Other (Sleepy but easily woken, slurred speech) HEENT: positive: EOMI, YUSUF, Normal Voice Neck: positive: Tender, Trachea midline, Supple Respiratory/Chest: positive: Lungs Clear, Normal Breath Sounds. negative: Chest Tender, Respiratory Distress Cardiovascular: positive: Regular Rhythm, Regular Rate Comments:: 01/22/17 11:41 radial pulses 3+ b/l Extremity: positive: Tender (right arm), Swelling (right arm), Inflammation, Other (4cm x 5 cm indurated area of the mid left antebrachium with warmth and a small area of central fluctuance and erythema extending from distal arm to above the elbow) Neurologic: positive: literary writer II-XII NML intact, Fully Oriented, Alert (Sleepy but easily woken), Normal Response (delayed response) Procedures - Incision and Drainage I&D Site: Right: Arm Betadine cleansed: Yes Anesthesia: 1% Lidocaine Volume(ml): 3 Blade Size: 11 Attempts: 1 Iodinated Packin/2 in Plain Packing: No Complications: none (minimal bleeding; patient tolerated procedure well) Dressing: Yes Progress: 01/20/17 15:57 Placed patient on her side and supported the right arm with rolled blankets. Prepped the forearm with betadine. Donned sterile gloves and covered the forearm with a sterile drape administered 1 ml 1% lidocane into two locations along the sides of the area of fluctuant and one directly into the area of fluctuant made a 1 cm incision and expressed a moderate amount of pus used a needle bicycle taxi driver to break up multiple loculations and packed with 3-4 cm of 1/2 inch iodinated packing dressed with wound with 2x2 gauze patient tolerated the procedure well, maintained hemostasis throughout ED Treatment Course - LABORATORY CBC & Chemistry Diagram: 01/21/17 06:00 01/21/17 06:00 Medical Decision Making - Medical Decision Making 01/20/17 13:08 21 yo female with significant hx substance abuse with skin popping presenting with indurated erythema to right forearm after 3 days keflex that extends above the elbow Ddx, cellulitis, abscess 01/20/17 14:00 5x4 cm area of warm indurated erythema; construction carpenters helper erythema to 5 cm proximal the elbow 01/20/17 15:26 I&D of right forearm, wound culture taken, 4-5 cc pus expressed from the incision, 3 cm pack 01/20/17 15:42 Patient given 1 g vancomycin IV 01/20/17 15:51 Plan to admit due to failure of outpatient antibiotic and involvement of a joint 01/20/17 17:26 Spoke with hospitalist requested *DC/Admit/Observation/Transfer Diagnosis at time of Disposition: Abscess Cellulitis Qualifiers: Site of cellulitis: extremity Site of cellulitis of extremity: upper extremity Laterality: right Qualified Code(s): L03.113 - Cellulitis of right upper limb - Discharge Dispostion Admit: Yes - Referrals - Attestations Physician Attestion: 01/20/17 17:09 I, Dr. Kostas Sabillon, attest that this document has been prepared under my direction and personally reviewed by me in its entirety. I further attest, that it accurately reflects all work, treatment, procedures and medical decision -making performed by me.
--- NOTE | 2017-01-20 13:44 | PDOC ---
Attending Attestation - Resident Resident Name: Kostas Sabillon - ED Attending Attestation I have performed the following: I have examined & evaluated the patient, The case was reviewed & discussed with the resident, I agree w/resident's findings & plan, Exceptions are as noted - HPI HPI: 21 yo F history IV drug abuse (heroin) presents with R forearm swelling after skin popping with heroin. Denies fever, chills. She states she has not used heroin or cocaine in the past 3 days due to antibiotic use (has been taking keflex outpatient). She has been in [facility] for detox. Denies cp, SOB. She has had prior similar symptoms. - Physicial Exam PE: GENERAL: Awake, lethargic but awakens to voice. Fully oriented, in no acute distress HEAD: No signs of trauma EYES: PERRLA, EOMI, sclera anicteric, conjunctiva clear ENT: Auricles normal inspection, hearing grossly normal, nares patent, oropharynx clear without exudates. Moist mucosa NECK: Normal ROM, supple, no lymphadenopathy, JVD, or masses LUNGS: Breath sounds equal, clear to auscultation bilaterally. No wheezes, and no crackles HEART: Regular rate and rhythm, normal S1 and S2, no murmurs, rubs or gallops ABDOMEN: Soft, nontender, normoactive bowel sounds. No guarding, no rebound. No masses EXTREMITIES: R forearm with large indurated area to the volar surface of the forearm, with edema extending up to the elbow. L forearm with two small indurated nonfluctuant area. Remainder of extremities with normal range of motion, no edema. No clubbing or cyanosis. No cords, erythema, or tenderness NEUROLOGICAL: Cranial nerves II through XII grossly intact. Motor and sensation intact. Speech slightly slurred. SKIN: Warm, Dry, normal turgor, no rashes. - Medical Decision Making Pt with R forearm abscess secondary to skin popping. Will drain abscess and plan for admission, as the edema extends all the way up to the elbow, and her forearm is rather indurated.
[2017-01-20] MEDS ORDERED: VANCOMYCIN 1,000 MG in DEXTROSE 5%-WATER - 250 ML IVPB ONE (15:30)
[2017-01-20 15:47] LABS: EOSINOPHIL 6.9 % (0-4.5); MCHC 33.7 g/dl (32.0-36.0); MEAN CELL VOLUME 85.9 fl (80-96); MEAN PLT VOLUME 8.5 fl (7.5-11.1); NEUTROPHILS 52.8 % (42.8-82.8); PLATELET COUNT 330 K/MM3 (134-434); RDW 13.8 % (11.6-15.6); WHITE BLOOD COUNT 8.3 K/mm3 (4.0-10.0)
[2017-01-20 16:00] LABS: ALBUMIN 3.2 g/dl (3.4-5.0); ANION GAP 6 (8-16); CALCIUM 8.8 mg/dL (8.5-10.1); CO2 29 mmol/L (21-32); GLUCOSE,RANDOM 88 mg/dL (74-106)
[2017-01-20] MEDS ORDERED: VANCOMYCIN 1 GRAM (PRE-DOCKED) 250 ML IVPB ONE (16:03)
[2017-01-20 16:04] LABS: ALK PHOS 55 U/L (45-117); CREATININE 0.6 mg/dL (0.55-1.02); SGOT/AST 8 U/L (15-37); SGPT/ALT 13 U/L (12-78); TOT PROT 6.4 g/dl (6.4-8.2)
[2017-01-20 16:13] LABS: BILIRUBIN,TOTAL < 0.1 mg/dL (0.2-1.0)
[2017-01-20] MEDS ORDERED: PIPERACILLIN/TAZOB 3.375 GM 3.375 GM in DEXTROSE 5%-WATER - 50 ML IVPB ONE (17:21)
[2017-01-20] MEDS ORDERED: PIPERACILLIN/TAZOB 3.375 GM 50 ML IVPB ONE (17:26)
--- NOTE | 2017-01-20 17:53 | HP ---
Admitting History and Physical - Admission History of Present Illness: HPI This 21 year old female with pmhx asthma, bi polar, anxiety, nicotine dependence , multiple drug dependence (marijuana, crack, alcohol, opiates, cocaine, benzos) . One year ago she started using heroine, per [facility] record she uses 10 bags/ day, IV route last used on 01/16. She shoots to her bilateral arms, she only uses her own needles, does share from one site to the other, uses water to wet the needles. She is HIV negative (on 01/17) she went to [facility] seeking help to stop using, she was placed on methadone detox. When she arrived at [facility] (01/17) she as started on keflex 500mg q6hr for cellulitis to R arm Today, her RUE was noted to be increasingly firm, tender, warm to touch with decreased function, along with elevated WBC and she was sent to the ED. Abscess was drained in the ED at bedside. Patient reports cold and hot sweats, fever, chills, and feeling achy. She is constipated, last BM 2 days ago. History Source: Patient Limitations to Obtaining History: No Limitations - Past Medical History Pulmonary: Yes: Asthma ...LMP: 01/12/17 - Past Surgical History Past Surgical History: Yes: (2013) - Smoking History Smoking history: Current every day smoker Have you smoked in the past 12 months: Yes Aproximately how many cigarettes per day: 20 - Alcohol/Substance Use Hx Alcohol Use: Yes History of Substance Use: reports: Cocaine, Heroin, Marijuana, Prescription - Social History Usual Living Arrangement: Yes: With Parent (mom) ADL: Independent History of Recent Travel: No Home Medications - Allergies Allergies/Adverse Reactions: Allergies Allergy/AdvReac Type Severity Reaction Status Date / Time Sulfa (Sulfonamide Allergy Severe Rash Verified 01/20/17 12:52 Antibiotics) - Home Medications Home Medications: Ambulatory Orders [place] Carbonate [Eskalith -] 900 mg PO HS 10/20/16 Albuterol Sulfate Inhaler - [Ventolin HFA Inhaler -] 2 puff IH Q4H PRN 01/17/17 Aripiprazole [Abilify -] 15 mg PO DAILY #30 tablet 01/20/17 Gabapentin [Neurontin -] 300 mg PO TID #30 capsule 01/20/17 Mirtazapine [Remeron -] 15 mg PO HS #30 tablet 01/20/17 Family Disease History - Family Disease History Family Disease History: Diabetes: Grandparent, Mother (HEROIN/ CRACK/COCAINE), Other: Father (HEROIN & ALCOHOL), Mother Review of Systems - Review of Systems Constitutional: reports: Chills, Fever, Lethargy, Malaise Eyes: reports: No Symptoms HENT: reports: No Symptoms Neck: reports: No Symptoms Cardiovascular: reports: No Symptoms Respiratory: reports: No Symptoms Gastrointestinal: reports: No Symptoms Genitourinary: reports: No Symptoms Musculoskeletal: reports: No Symptoms Integumentary: reports: No Symptoms Neurological: reports: No Symptoms Endocrine: reports: No Symptoms Hematology/Lymphatic: reports: No Symptoms Psychiatric: reports: No Symptoms Physical Examination Vital Signs: Vital Signs Temperature 98.2 F 01/20/17 12:45 Pulse Rate 82 01/20/17 12:45 Respiratory Rate 18 01/20/17 12:45 Blood Pressure 101/65 01/20/17 12:45 O2 Sat by Pulse Oximetry (%) 100 01/20/17 12:45 Constitutional: Yes: Calm Eyes: Yes: Conjunctiva Clear HENT: Yes: Atraumatic Neck: Yes: Supple Cardiovascular: Yes: Regular Rate and Rhythm, S1, S2 Respiratory: Yes: Regular, CTA Bilaterally Gastrointestinal: Yes: WNL, Normal Bowel Sounds, Soft ...Rectal Exam: Yes: WNL Renal/: Yes: WNL Musculoskeletal: Yes: WNL Extremities: Yes: Erythema (RUE swelling to elbow, erythema, tenderness, abscess drained and packed sanguinous) Edema: No Peripheral Pulses WNL: No Wound/Incision: Yes: Other (dressing packed RUE) Neurological: Yes: Alert, Oriented, Lethargy Psychiatric: Yes: Alert, Oriented Labs: CBC, BMP 01/20/17 13:30 01/20/17 13:30 Problem List - Problems (1) Abscess Code(s): L02.91 - CUTANEOUS ABSCESS, UNSPECIFIED (2) Cellulitis Code(s): L03.90 - CELLULITIS, UNSPECIFIED Qualifiers: Site of cellulitis: extremity Site of cellulitis of extremity: upper extremity Laterality: right Qualified Code(s): L03.113 - Cellulitis of right upper limb (3) Cocaine dependence Code(s): F14.20 - COCAINE DEPENDENCE, UNCOMPLICATED Qualifiers: Substance use status: uncomplicated Qualified Code(s): F14.20 - Cocaine dependence, uncomplicated (4) Heroin abuse Code(s): F11.10 - OPIOID ABUSE, UNCOMPLICATED (5) Nicotine dependence Code(s): F17.200 - NICOTINE DEPENDENCE, UNSPECIFIED, UNCOMPLICATED Qualifiers : Nicotine product type: cigarettes Substance use status: uncomplicated Qualified Code(s): F17.210 - Nicotine dependence, cigarettes, uncomplicated (6) Asthma Code(s): J45.909 - UNSPECIFIED ASTHMA, UNCOMPLICATED Qualifiers: Asthma severity: mild intermittent (7) Bipolar disorder Code(s): F31.9 - BIPOLAR DISORDER, UNSPECIFIED Qualifiers: Current episode severity: unspecified (8) Anxiety and depression Code(s): F41.9 - ANXIETY DISORDER, UNSPECIFIED F32.9 - MAJOR DEPRESSIVE DISORDER, SINGLE EPISODE, UNSPECIFIED Assessment/Plan Assessment: 21 year old female, hx of multiple substance abuse, admitted from [facility] with RUE cellulitis and abscess for heroine IVDU Plan: 1. RUE abscess/cellulitis d/t IVDU - Give Vanco x1 - Start zosyn q8 - Xray RUE r/o gas - ECHO r/o endocarditis - HIV negative - Start NS 100cc/hr - Follow blood cx and wound cx - Follow Lactic acid - ID consulted for abx approval 2. Substance abuse - Will need to compete detox here - Resume [facility] meds as listed 3. Nicotine dependence - Nicotine patch 21mg daily 4. Hypotension - 1L bolus now - Trend BP 5. DVT ppx - SCDs - Daily ambulation Visit type - Emergency Visit Emergency Visit: Yes ED Registration Date: 01/20/17 Care time: The patient presented to the Emergency Department on the above date and was hospitalized for further evaluation of their emergent condition. - New Patient This patient is new to me today: Yes Date on this admission: 01/22/17 - Critical Care Critical Care patient: No
[2017-01-20] MEDS ORDERED: PIPERACILLIN/TAZOB 3.375 GM/50 ML PRE-DOCKED IVPB SCH (18:00)
[2017-01-20] MEDS ORDERED: ACETAMINOPHEN 325 MG TABLET (FP) PO PRN (18:04)
[2017-01-20] MEDS ORDERED: SODIUM CHLORIDE 1,000 ML IV STA ×2 (18:06→19:46)
[2017-01-20] MEDS ORDERED: ALBUTEROL SO4 6.7 GM HFA INHALER IH PRN (18:09)
[2017-01-20] MEDS ORDERED: hydrOXYzine PAMOATE 25 MG CAPSULE (FP) PO PRN (18:18)
[2017-01-20] MEDS ORDERED: NICOTINE POLACRILEX 2 MG GUM BUC PRN (18:23)
[2017-01-20 20:15] VITALS: BMI 27.8
[2017-01-20] MEDS: SODIUM CHLORIDE 1,000 ML IV SCH (21:08)
[2017-01-20] MEDS: MIRTAZAPINE 15 MG TABLET (FP) PO SCH (21:10)
[2017-01-20] MEDS: THIAMINE HCL 100 MG TABLET (FP) PO SCH (21:12)
[2017-01-20] MEDS: GABAPENTIN 300 MG CAPSULE (FP) PO SCH (21:12)
[2017-01-20] MEDS: cloNIDine HCL 0.1 MG TABLET PO SCH (21:12)
[2017-01-20] MEDS ORDERED: diazePAM 5 MG TABLET PO SCH (22:00)
[2017-01-21] MEDS: PIPERACILLIN/TAZOB 3.375 GM/50 ML PRE-DOCKED IVPB SCH ×2 (02:29→09:35)
[2017-01-21] MEDS ORDERED: SODIUM CHLORIDE 1,000 ML IV STA (02:47)
[2017-01-21] MEDS: GABAPENTIN 300 MG CAPSULE (FP) PO SCH ×3 (06:03→21:44)
[2017-01-21] MEDS ORDERED: PT OWN MED DRAWER 7, Y5N ONE ×3 (06:47→21:08)
[2017-01-21 08:05] LABS: BASOPHIL 1.2 % (0-2.0); EOSINOPHIL 7.2 % (0-4.5); MCHC 33.3 g/dl (32.0-36.0); NEUTROPHILS 43.2 % (42.8-82.8); PLATELET COUNT 339 K/MM3 (134-434); RDW 13.5 % (11.6-15.6); WHITE BLOOD COUNT 7.7 K/mm3 (4.0-10.0)
[2017-01-21 08:27] LABS: CALCIUM 8.4 mg/dL (8.5-10.1)
[2017-01-21 08:33] LABS: ALBUMIN 2.9 g/dl (3.4-5.0); ALK PHOS 48 U/L (45-117); ANION GAP 6 (8-16); BILIRUBIN,TOTAL 0.2 mg/dL (0.2-1.0); CO2 26 mmol/L (21-32); CREATININE 0.7 mg/dL (0.55-1.02); GLUCOSE,RANDOM 87 mg/dL (74-106); MAGNESIUM 2.1 mg/dL (1.8-2.4); SGOT/AST 9 U/L (15-37); SGPT/ALT 12 U/L (12-78); TOT PROT 5.8 g/dl (6.4-8.2)
--- NOTE | 2017-01-21 08:46 | PN ---
Physical Exam: SUBJECTIVE: Patient seen and examined at bedside. C/o pain to right forearm and chills. Denies nausea, vomiting, sweating, agitation/restlessness, rhinorrhea or bodyaches. OBJECTIVE: Vital Signs 3 Period Temp Pulse Resp BP Sys/[place]arro Pulse Ox Last 24 Hr 97.6 F-97.9 F 55-76 20-20 95-104/54-72 98-98 GENERAL: The patient is awake, alert, and fully oriented, in no acute distress. HEAD: Normal with no signs of trauma. EYES: PERRL, extraocular movements intact, sclera anicteric, conjunctiva clear. No ptosis. LUNGS: Breath sounds equal, clear to auscultation bilaterally, no wheezes, no crackles, no accessory muscle use. HEART: Regular rate and rhythm, S1, S2 without murmur. ABDOMEN: Soft, nontender, nondistended, normoactive bowel sounds, no guarding. EXTREMITIES: 2+ pulses, warm, well-perfused, no edema. Erythema present to right forearm extending to antecubital fossa. I&D site with serrous drainage present on dressing. Packing in place. NEUROLOGICAL: Cranial nerves II through XII grossly intact. Normal speech, gait not observed. PSYCH: Normal mood, normal affect. SKIN: Erythema present to right forearm extending to antecubital fossa. I&D site with serrous drainage present on dressing. Packing in place. Laboratory Results - last 24 hr 3 01/21/17 01/21/17 06:00 06:00 WBC 7.7 RBC 4.47 Hgb 12.9 Hct 38.9 MCV 87.0 MCH 29.0 MCHC 33.3 RDW 13.5 Plt Count 339 MPV 9.0 Neutrophils % 43.2 Lymphocytes % 42.3 H D Monocytes % 6.1 Eosinophils % 7.2 H Basophils % 1.2 Sodium 142 Potassium 4.6 Chloride 110 H Carbon Dioxide 26 Anion Gap 6 L BUN 12 Creatinine 0.7 Creat Clearance w eGFR > 60 Random Glucose 87 Calcium 8.4 L Magnesium 2.1 Total Bilirubin 0.2 D AST 9 L ALT 12 Alkaline Phosphatase 48 Total Protein 5.8 L Albumin 2.9 L Active Medications 3 Generic Name Dose Route Start Last Admin Trade Name Freq PRN Reason Stop Dose Admin Acetaminophen 650 mg 01/20/17 18:01 Tylenol - PO Q4H PRN FEVER OR PAIN Albuterol Sulfate 2 puff 01/20/17 18:09 Ventolin Hfa Inhaler - IH Q4H PRN SHORT OF BREATH/WHEEZING Aripiprazole 10 mg 01/21/17 10:00 Abilify PO DAILY MELODY Clonidine 0.1 mg 01/20/17 22:00 01/20/17 21:12 Catapres - PO Not Given BID MELODY Cyclobenzaprine HCl 10 mg 01/20/17 18:17 Flexeril - PO TID PRN MUSCLE SPASMS Diazepam 5 mg 01/21/17 10:00 Valium - PO 01/21/17 10:01 ONCE ONE Gabapentin 300 mg 01/20/17 22:00 01/21/17 06:03 Neurontin - PO 300 mg TID MELODY Administration Hydroxyzine Pamoate 25 mg 01/20/17 18:18 Vistaril - PO Q4H PRN AGITATION Sodium Chloride 1,000 mls @ 100 mls/hr 01/20/17 18:30 01/20/17 21:08 Normal Saline - IV 100 mls/hr ASDIR MELODY Administration Methadone HCl 10 mg 01/21/17 10:00 Dolophine - PO 01/21/17 10:01 ONCE ONE Methadone HCl 5 mg 01/22/17 06:00 Dolophine - PO 01/22/17 06:01 ONCE ONE Mirtazapine 7.5 mg 01/20/17 22:00 01/20/17 21:10 Remeron - PO 7.5 mg HS MELODY Administration Nicotine 21 mg 01/21/17 10:00 Nicoderm Patch - TD DAILY MELODY Nicotine Polacrilex 2 mg 01/20/17 18:23 Nicorette Gum - BUC Q2H PRN NICOTINE REPLACEMENT RX Piperacillin Sod/Tazobactam Sod 3.375 gm 01/20/17 18:00 Zosyn 3.375gm Ivpb (Pre-Docked) IVPB Q8H-IV MELODY Protocol Piperacillin Sod/Tazobactam Sod 3.375 gm 01/21/17 02:00 01/21/17 02:29 Zosyn 3.375gm Ivpb (Pre-Docked) IVPB 01/21/17 10:01 3.375 gm Q8H-IV MELODY Administration Multivit/Folic Acid/Iron 1 tab 01/21/17 10:00 Vitamins (Sjr) - PO DAILY MELODY Thiamine HCl 100 mg 01/20/17 22:00 01/20/17 21:12 Vitamin B1 - PO 100 mg HS MELODY Administration Imaging: Right elbow: Pain. Imaging reveals no sign of a gross fracture, subluxation or bone destruction. If symptoms persist, further imaging may be of help. Reported By: Nikko Bhatti MD 01/21/17 0738 Right forearm: Pain. Imaging reveals no sign of fracture, subluxation or bone destruction. Blastic or lytic changes are not seen. If symptoms persist, further imaging may be of help. Impression: No acute pathology. Reported By: Nikko Bhatti MD 01/21/17 0738 Right humerus: Cellulitis. Pain. Imaging reveals an intact humerus with no sign of fracture or subluxation no sign of blastic or lytic changes. If symptoms persist, further imaging may be of help. Impression: No acute pathology. Reported By: Nikko Bhatti MD 01/21/17 0739 ASSESSMENT/PLAN: Assessment: 21 year old female, hx of multiple substance abuse, admitted from [facility] with RUE cellulitis and abscess for heroine s/p skin popping. COWS score-2 points(No active withdrawal). Plan: 1. RUE abscess/cellulitis d/t SQDU - Give Vanco x1 - Continue zosyn q8 - Xray RUE r/o gas- no gas present. - ECHO r/o endocarditis - HIV negative - Continue NS 100cc/hr - Follow blood cx and wound cx - Follow Lactic acid - ID consulted for abx approval 2. Opiod dependance - Resume [facility] meds as listed 3. Nicotine dependence - Nicotine patch 21mg daily 4. Hypotension - resolved after 1L bolus - Trend BP 5. F/E/N - NS@100cc/hr - NS bolus SBP<90 - regular diet - replete prn 6. DVT ppx - SCDs - OOB Dispo- requires continued inpatient care for her acute medical conditions Problem List - Problems (1) Abscess Code(s): L02.91 - CUTANEOUS ABSCESS, UNSPECIFIED (2) Cellulitis Code(s): L03.90 - CELLULITIS, UNSPECIFIED Qualifiers: Site of cellulitis: extremity Site of cellulitis of extremity: upper extremity Laterality: right Qualified Code(s): L03.113 - Cellulitis of right upper limb (3) Cannabis dependence Code(s): F12.20 - CANNABIS DEPENDENCE, UNCOMPLICATED (4) Cocaine dependence Code(s): F14.20 - COCAINE DEPENDENCE, UNCOMPLICATED Qualifiers: Substance use status: uncomplicated Qualified Code(s): F14.20 - Cocaine dependence, uncomplicated (5) Heroin abuse Code(s): F11.10 - OPIOID ABUSE, UNCOMPLICATED (6) Nicotine dependence Code(s): F17.200 - NICOTINE DEPENDENCE, UNSPECIFIED, UNCOMPLICATED Qualifiers : Nicotine product type: cigarettes Substance use status: uncomplicated Qualified Code(s): F17.210 - Nicotine dependence, cigarettes, uncomplicated (7) Bipolar disorder Code(s): F31.9 - BIPOLAR DISORDER, UNSPECIFIED Qualifiers: Current episode severity: unspecified Visit type - Emergency Visit Emergency Visit: Yes ED Registration Date: 01/20/17 Care time: The patient presented to the Emergency Department on the above date and was hospitalized for further evaluation of their emergent condition. - New Patient This patient is new to me today: Yes Date on this admission: 01/21/17 - Critical Care Critical Care patient: No
[2017-01-21] MEDS: cloNIDine HCL 0.1 MG TABLET PO SCH ×2 (09:35→21:45)
[2017-01-21] MEDS: NICOTINE 21 MG/24 HOURS TOPICAL PATCH TD SCH (09:37)
[2017-01-21] MEDS ORDERED: METHADONE HCL 10 MG TABLET PO ONE (10:00)
[2017-01-21] MEDS ORDERED: VANCOMYCIN 1 GRAM (PRE-DOCKED) 250 ML IVPB ONE (10:00)
[2017-01-21] MEDS ORDERED: diazePAM 5 MG TABLET PO ONE (10:00)
[2017-01-21] MEDS: ARIPiprazole 10 MG TABLET PO SCH (13:13)
[2017-01-21] MEDS: PRENATAL VITAMINS W/ FOLIC ACID TABLET (FP) PO SCH (13:13)
--- NOTE | 2017-01-21 13:30 | EKG ---
Test Reason : Blood Pressure : / mmHG Vent. Rate : 066 BPM Atrial Rate : 066 BPM P-R Int : 128 ms QRS Dur : 088 ms QT Int : 408 ms P-R-T Axes : 065 080 070 degrees QTc Int : 427 ms NORMAL SINUS RHYTHM NORMAL ECG WHEN COMPARED WITH ECG OF 17-JAN-2017 10:16, NO SIGNIFICANT CHANGE WAS FOUND Confirmed by MONSERRAT HERNANDEZ MD ([id number]) on 01/21/2017 1:30:38 PM Referred By: Confirmed By:MONSERRAT HERNANDEZ MD
--- NOTE | 2017-01-21 13:38 | CONSULT ---
Consult Consult Specialty:: infectious diseases Reason for Consultation:: cellulitis of the rt hand - History of Present Illness Chief Complaint: pain and swelling of the rt hand History of Present Illness: 21 year old female with pmhx asthma, bi polar, anxiety, nicotine dependence, multiple drug dependence (marijuana, crack, alcohol, opiates, cocaine, benzos). One year ago she started using heroine, per [facility] record she uses 10 bags/ day, IV route last used on 01/16. She shoots to her bilateral arms, she only uses her own needles, does share from one site to the other, uses water to wet the needles. She is HIV negative (on 01/17) she went to [facility] seeking help to stop using, she was placed on methadone detox. shw was found to have cellulitits of the arm was given keflex and according to her she also spiked a fever in the detox center and got tylenolol patient currently is c/o of pain and swelling of the rt arm had a i and d done in the er also her dressing seems to be wet pain is the main issue now denies any fever - History Source History Provided By: Patient Limitations to Obtaining History: No Limitations - Past Medical History Pulmonary: Yes: Asthma ...LMP: 01/12/17 ...: No - Past Surgical History Past Surgical History: Yes: (2013) - Alcohol/Substance Use Hx Alcohol Use: Yes History of Substance Use: reports: Cocaine, Heroin, Marijuana, Prescription - Smoking History Smoking history: Current every day smoker Have you smoked in the past 12 months: Yes Aproximately how many cigarettes per day: 20 - Social History ADL: Independent History of Recent Travel: No Home Medications - Allergies Allergies/Adverse Reactions: Allergies Allergy/AdvReac Type Severity Reaction Status Date / Time Sulfa (Sulfonamide Allergy Severe Rash Verified 01/20/17 12:52 Antibiotics) - Home Medications Home Medications: Ambulatory Orders [place] Carbonate [Eskalith -] 900 mg PO HS 10/20/16 Albuterol Sulfate Inhaler - [Ventolin HFA Inhaler -] 2 puff IH Q4H PRN 01/17/17 Aripiprazole [Abilify -] 15 mg PO DAILY #30 tablet 01/20/17 Gabapentin [Neurontin -] 300 mg PO TID #30 capsule 01/20/17 Mirtazapine [Remeron -] 15 mg PO HS #30 tablet 01/20/17 Family Disease History - Family Disease History Family Disease History: Diabetes: Grandparent, Mother (HEROIN/ CRACK/COCAINE), Other: Father (HEROIN & ALCOHOL), Mother Review of Systems - Review of Systems Constitutional: reports: Fever, Other Eyes: reports: No Symptoms HENT: reports: No Symptoms Neck: reports: No Symptoms Cardiovascular: reports: No Symptoms Respiratory: reports: No Symptoms Gastrointestinal: reports: No Symptoms Genitourinary: reports: No Symptoms Musculoskeletal: reports: Muscle Pain Integumentary: reports: Change in Color, Erythema, Incision, Wound Neurological: reports: No Symptoms Endocrine: reports: No Symptoms Hematology/Lymphatic: reports: No Symptoms Psychiatric: reports: No Symptoms Physical Exam Vital Signs: Vital Signs Temperature 97.6 F 01/21/17 08:00 Pulse Rate 76 01/21/17 08:00 Respiratory Rate 20 01/21/17 08:00 Blood Pressure 102/72 01/21/17 08:00 O2 Sat by Pulse Oximetry (%) 100 01/21/17 09:00 Constitutional: Yes: Well Nourished, Calm, Mild Distress Eyes: Yes: Conjunctiva Clear HENT: Yes: Atraumatic Neck: Yes: Supple, Trachea Midline Cardiovascular: Yes: Regular Rate and Rhythm Respiratory: Yes: Regular, CTA Bilaterally Gastrointestinal: Yes: Normal Bowel Sounds, Soft Musculoskeletal: Yes: Other Extremities: Yes: Erythema (of the rt arm extending to the upper arm till the axilla no streaks noted no lymphh node palpated) Integumentary: Yes: Erythema, Other Wound/Incision: Yes: Draining, Reddened, Other Neurological: Yes: Alert, Oriented Psychiatric: Yes: Alert, Oriented Labs: CBC, BMP 01/21/17 06:00 01/21/17 06:00 Imaging - Results X-ray: Report Reviewed, Image Reviewed Assessment/Plan Problem List - Problems (1) Abscess Code(s): L02.91 - CUTANEOUS ABSCESS, UNSPECIFIED (2) Cellulitis Code(s): L03.90 - CELLULITIS, UNSPECIFIED Qualifiers: Site of cellulitis: extremity Site of cellulitis of extremity: upper extremity Laterality: right Qualified Code(s): L03.113 - Cellulitis of right upper limb (3) Cocaine dependence Code(s): F14.20 - COCAINE DEPENDENCE, UNCOMPLICATED Qualifiers: Substance use status: uncomplicated Qualified Code(s): F14.20 - Cocaine dependence, uncomplicated (4) Heroin abuse Code(s): F11.10 - OPIOID ABUSE, UNCOMPLICATED (5) Nicotine dependence Code(s): F17.200 - NICOTINE DEPENDENCE, UNSPECIFIED, UNCOMPLICATED Qualifiers : Nicotine product type: cigarettes Substance use status: uncomplicated Qualified Code(s): F17.210 - Nicotine dependence, cigarettes, uncomplicated (6) Asthma Code(s): J45.909 - UNSPECIFIED ASTHMA, UNCOMPLICATED Qualifiers: Asthma severity: mild intermittent (7) Bipolar disorder Code(s): F31.9 - BIPOLAR DISORDER, UNSPECIFIED Qualifiers: Current episode severity: unspecified (8) Anxiety and depression Code(s): F41.9 - ANXIETY DISORDER, UNSPECIFIED F32.9 - MAJOR DEPRESSIVE DISORDER, SINGLE EPISODE, UNSPECIFIED plan continue abx await for all cx reports monitor for fevers rest as per primary wound care
[2017-01-21] MEDS: CYCLOBENZAPRINE HCL 10 MG TABLET (FP) PO PRN (15:03)
[2017-01-21] MEDS: SODIUM CHLORIDE 1,000 ML IV SCH (16:41)
[2017-01-21] MEDS: PIPERACILLIN/TAZOB 3.375 GM 50 ML IVPB SCH (17:00)
[2017-01-21] MEDS: ACETAMINOPHEN 325 MG TABLET (FP) PO PRN (18:02)
[2017-01-21] MEDS: MIRTAZAPINE 15 MG TABLET (FP) PO SCH (21:44)
[2017-01-21] MEDS: THIAMINE HCL 100 MG TABLET (FP) PO SCH (21:44)
[2017-01-22] MEDS: PIPERACILLIN/TAZOB 3.375 GM 50 ML IVPB SCH ×3 (02:31→17:50)
[2017-01-22] MEDS: SODIUM CHLORIDE 1,000 ML IV SCH ×3 (05:55→22:19)
[2017-01-22] MEDS: GABAPENTIN 300 MG CAPSULE (FP) PO SCH ×2 (05:56→14:00)
[2017-01-22] MEDS ORDERED: METHADONE HCL 5 MG TABLET PO ONE (06:00)
[2017-01-22] MEDS ORDERED: PT OWN MED DRAWER 7, Y5N ONE ×2 (06:25→10:00)
[2017-01-22] MEDS: cloNIDine HCL 0.1 MG TABLET PO SCH (09:47)
[2017-01-22] MEDS: ARIPiprazole 10 MG TABLET PO SCH (09:56)
[2017-01-22] MEDS: NICOTINE 21 MG/24 HOURS TOPICAL PATCH TD SCH (09:56)
[2017-01-22] MEDS: PRENATAL VITAMINS W/ FOLIC ACID TABLET (FP) PO SCH (10:01)
[2017-01-22] MEDS: VANCOMYCIN 1,250 MG in DEXTROSE 5%-WATER - 250 ML IVPB SCH (10:53)
--- NOTE | 2017-01-22 15:33 | PN ---
Progress Note, Physician History of Present Illness: patient doing well wounds healing well patient has to go as she has appointment with psych - Current Medication List Current Medications: Active Medications Acetaminophen (Tylenol -) 650 mg PO Q4H PRN PRN Reason: FEVER OR PAIN Last Admin: 01/21/17 18:02 Dose: 650 mg Albuterol Sulfate (Ventolin Hfa Inhaler -) 2 puff IH Q4H PRN PRN Reason: SHORT OF BREATH/WHEEZING Aripiprazole (Abilify) 10 mg PO DAILY [facility] Last Admin: 01/22/17 09:56 Dose: 10 mg Clonidine (Catapres -) 0.1 mg PO BID [facility] Last Admin: 01/22/17 09:47 Dose: Not Given Cyclobenzaprine HCl (Flexeril -) 10 mg PO TID PRN PRN Reason: MUSCLE SPASMS Last Admin: 01/21/17 15:03 Dose: 10 mg Gabapentin (Neurontin -) 300 mg PO TID [facility] Last Admin: 01/22/17 05:56 Dose: 300 mg Hydroxyzine Pamoate (Vistaril -) 25 mg PO Q4H PRN PRN Reason: AGITATION Last Admin: 01/22/17 09:57 Dose: 25 mg Sodium Chloride (Normal Saline -) 1,000 mls @ 100 mls/hr IV ASDIR [facility] Last Admin: 01/22/17 05:55 Dose: 100 mls/hr Vancomycin HCl 1,250 mg/ (Dextrose) 250 mls @ 166.667 mls/hr IVPB DAILY MELODY PRN Reason: Protocol Last Admin: 01/22/17 10:53 Dose: 166.667 mls/hr Piperacillin Sod/Tazobactam Sod (Zosyn 3.375gm Ivpb (Pre-Docked)) 50 mls @ 100 mls/hr IVPB Q8H-IV MELODY PRN Reason: Protocol Last Admin: 01/22/17 09:55 Dose: 100 mls/hr Mirtazapine (Remeron -) 7.5 mg PO HS [facility] Last Admin: 01/21/17 21:44 Dose: 7.5 mg Nicotine (Nicoderm Patch -) 21 mg TD DAILY [facility] Last Admin: 01/22/17 09:56 Dose: 21 mg Nicotine Polacrilex (Nicorette Gum -) 2 mg BUC Q2H PRN PRN Reason: NICOTINE REPLACEMENT RX Multivit/Folic Acid/Iron ( Vitamins (Sjr) -) 1 tab PO DAILY [facility] Last Admin: 01/22/17 10:01 Dose: 1 tab Thiamine HCl (Vitamin B1 -) 100 mg PO HS [facility] Last Admin: 01/21/17 21:44 Dose: 100 mg - Objective Vital Signs: Vital Signs Temperature 98.1 F 01/22/17 14:00 Pulse Rate 100 H 01/22/17 14:00 Respiratory Rate 20 01/22/17 14:00 Blood Pressure 98/50 01/22/17 14:00 O2 Sat by Pulse Oximetry (%) 100 01/21/17 21:00 Constitutional: Yes: No Distress, Calm Cardiovascular: Yes: Regular Rate and Rhythm Respiratory: Yes: Regular, CTA Bilaterally Gastrointestinal: Yes: Normal Bowel Sounds, Soft Musculoskeletal: Yes: Other Extremities: Yes: Other (wound healing well) Wound/Incision: Yes: Clean/Dry Neurological: Yes: Alert, Oriented Psychiatric: Yes: Alert, Oriented Labs: CBC, BMP 01/21/17 06:00 01/21/17 06:00 Assessment/Plan Problem List - Problems (1) Abscess Code(s): L02.91 - CUTANEOUS ABSCESS, UNSPECIFIED (2) Cellulitis Code(s): L03.90 - CELLULITIS, UNSPECIFIED Qualifiers: Site of cellulitis: extremity Site of cellulitis of extremity: upper extremity Laterality: right Qualified Code(s): L03.113 - Cellulitis of right upper limb (3) Cocaine dependence Code(s): F14.20 - COCAINE DEPENDENCE, UNCOMPLICATED Qualifiers: Substance use status: uncomplicated Qualified Code(s): F14.20 - Cocaine dependence, uncomplicated (4) Heroin abuse Code(s): F11.10 - OPIOID ABUSE, UNCOMPLICATED (5) Nicotine dependence Code(s): F17.200 - NICOTINE DEPENDENCE, UNSPECIFIED, UNCOMPLICATED Qualifiers : Nicotine product type: cigarettes Substance use status: uncomplicated Qualified Code(s): F17.210 - Nicotine dependence, cigarettes, uncomplicated (6) Asthma Code(s): J45.909 - UNSPECIFIED ASTHMA, UNCOMPLICATED Qualifiers: Asthma severity: mild intermittent (7) Bipolar disorder Code(s): F31.9 - BIPOLAR DISORDER, UNSPECIFIED Qualifiers: Current episode severity: unspecified (8) Anxiety and depression Code(s): F41.9 - ANXIETY DISORDER, UNSPECIFIED F32.9 - MAJOR DEPRESSIVE DISORDER, SINGLE EPISODE, UNSPECIFIED plan continue abx can switch to oral augmentin and clinda for another week
--- NOTE | 2017-01-22 16:12 | PN ---
Physical Exam: SUBJECTIVE: Patient seen and examined. Anxious this AM per RN. Currently calm no issues. OBJECTIVE: Vital Signs Period Temp Pulse Resp BP Sys/Navarro Pulse Ox Last 24 Hr 97.1 F-98.4 F 70-100 18-20 98-113/50-68 100 PE Neuro: alert, arousable, cn 2-12intact Pulm: CTAB CV: s1 s2 rrr nomrg Abd: s nt nd + bs ExT: RUE erythema, dressing serosanginous drainage, no le edema Active Medications Generic Name Dose Route Start Last Admin Trade Name Freq PRN Reason Stop Dose Admin Acetaminophen 650 mg 01/20/17 18:01 01/21/17 18:02 Tylenol - PO 650 mg Q4H PRN Administration FEVER OR PAIN Albuterol Sulfate 2 puff 01/20/17 18:09 Ventolin Hfa Inhaler - IH Q4H PRN SHORT OF BREATH/WHEEZING Aripiprazole 10 mg 01/21/17 10:00 01/22/17 09:56 Abilify PO 10 mg DAILY MELODY Administration Clonidine 0.1 mg 01/20/17 22:00 01/22/17 09:47 Catapres - PO Not Given BID MELODY Cyclobenzaprine HCl 10 mg 01/20/17 18:17 01/21/17 15:03 Flexeril - PO 10 mg TID PRN Administration MUSCLE SPASMS Gabapentin 300 mg 01/20/17 22:00 01/22/17 14:00 Neurontin - PO Not Given TID MELODY Hydroxyzine Pamoate 25 mg 01/20/17 18:18 01/22/17 09:57 Vistaril - PO 25 mg Q4H PRN Administration AGITATION Sodium Chloride 1,000 mls @ 100 mls/hr 01/20/17 18:30 01/22/17 05:55 Normal Saline - IV 100 mls/hr ASDIR MELODY Administration Vancomycin HCl 1,250 mg/ 250 mls @ 166.667 mls/hr 01/22/17 10:00 01/22/17 10:53 Dextrose IVPB 166.667 mls/hr DAILY MELODY Administration Protocol Piperacillin Sod/Tazobactam Sod 50 mls @ 100 mls/hr 01/21/17 18:00 01/22/17 09: 55 Zosyn 3.375gm Ivpb (Pre-Docked) IVPB 100 mls/hr Q8H-IV MELODY Administration Protocol Mirtazapine 7.5 mg 01/20/17 22:00 01/21/17 21:44 Remeron - PO 7.5 mg HS MELODY Administration Nicotine 21 mg 01/21/17 10:00 01/22/17 09:56 Nicoderm Patch - TD 21 mg DAILY MELODY Administration Nicotine Polacrilex 2 mg 01/20/17 18:23 Nicorette Gum - BUC Q2H PRN NICOTINE REPLACEMENT RX Multivit/Folic Acid/Iron 1 tab 01/21/17 10:00 01/22/17 10:01 Vitamins (Sjr) - PO 1 tab DAILY MELODY Administration Thiamine HCl 100 mg 01/20/17 22:00 01/21/17 21:44 Vitamin B1 - PO 100 mg HS MELODY Administration Microbiology 01/20/17 15:45 Blood - Peripheral Venous Blood Culture - Preliminary NO GROWTH OBTAINED AFTER 48 HOURS, INCUBATION TO CONTINUE FOR 3 DAYS. 01/20/17 13:30 Blood - Peripheral Venous Blood Culture - Preliminary NO GROWTH OBTAINED AFTER 48 HOURS, INCUBATION TO CONTINUE FOR 3 DAYS. 01/20/17 15:15 Arm - Right Forearm Gram Stain - Final 01/20/17 15:15 Arm - Right Forearm Wound Culture - Final NO GROWTH AFTER 48 HOURS INCUBATION Assessment: 21 year old female, hx of multiple substance abuse, admitted from [facility] with RUE cellulitis and abscess for heroine s/p skin popping. Plan: 1. RUE abscess/cellulitis d/t SQDU - Continue Vanco 3 days - Continue Zosyn (day 2) - ECHO negative for vegetation - Wound cx negative 2. Opiod dependance - Methadone detox complete today - Stop Clonidine - Stop Flexeril - Decrease Remeron - Decrease Gabapentin 100 tid - pt states her normally runs low - D/w Dr. Campos 3. Nicotine dependence - Nicotine patch 21mg daily 4. DVT ppx - SCDs - OOB Problem List - Problems (1) Abscess Code(s): L02.91 - CUTANEOUS ABSCESS, UNSPECIFIED (2) Cellulitis Code(s): L03.90 - CELLULITIS, UNSPECIFIED Qualifiers: Site of cellulitis: extremity Site of cellulitis of extremity: upper extremity Laterality: right Qualified Code(s): L03.113 - Cellulitis of right upper limb (3) Cocaine dependence Code(s): F14.20 - COCAINE DEPENDENCE, UNCOMPLICATED Qualifiers: Substance use status: uncomplicated Qualified Code(s): F14.20 - Cocaine dependence, uncomplicated (4) Heroin abuse Code(s): F11.10 - OPIOID ABUSE, UNCOMPLICATED (5) Nicotine dependence Code(s): F17.200 - NICOTINE DEPENDENCE, UNSPECIFIED, UNCOMPLICATED Qualifiers : Nicotine product type: cigarettes Substance use status: uncomplicated Qualified Code(s): F17.210 - Nicotine dependence, cigarettes, uncomplicated (6) Asthma Code(s): J45.909 - UNSPECIFIED ASTHMA, UNCOMPLICATED Qualifiers: Asthma severity: mild intermittent (7) Bipolar disorder Code(s): F31.9 - BIPOLAR DISORDER, UNSPECIFIED Qualifiers: Current episode severity: unspecified (8) Anxiety and depression Code(s): F41.9 - ANXIETY DISORDER, UNSPECIFIED F32.9 - MAJOR DEPRESSIVE DISORDER, SINGLE EPISODE, UNSPECIFIED Visit type - Emergency Visit Emergency Visit: Yes ED Registration Date: 01/20/17 Care time: The patient presented to the Emergency Department on the above date and was hospitalized for further evaluation of their emergent condition. - New Patient This patient is new to me today: No - Critical Care Critical Care patient: No
[2017-01-22] MEDS ORDERED: MIRTAZAPINE 15 MG TABLET (FP) PO SCH (16:26)
[2017-01-22] MEDS ORDERED: GABAPENTIN 300 MG CAPSULE (FP) PO SCH (16:27)
[2017-01-22] MEDS: CYCLOBENZAPRINE HCL 10 MG TABLET (FP) PO PRN (17:54)
[2017-01-22] MEDS: ACETAMINOPHEN 325 MG TABLET (FP) PO PRN (17:54)
[2017-01-22] MEDS: THIAMINE HCL 100 MG TABLET (FP) PO SCH (22:18)
[2017-01-22] MEDS: GABAPENTIN 100 MG CAPSULE (FP) PO SCH (22:27)
[2017-01-23] MEDS: PIPERACILLIN/TAZOB 3.375 GM 50 ML IVPB SCH ×2 (01:27→10:09)
[2017-01-23] MEDS: SODIUM CHLORIDE 1,000 ML IV SCH (03:18)
[2017-01-23] MEDS: GABAPENTIN 100 MG CAPSULE (FP) PO SCH (06:13)
[2017-01-23 06:40] VITALS: BP 102/62
[2017-01-23] MEDS ORDERED: PT OWN MED DRAWER 7, Y5N ONE (10:01)
[2017-01-23] MEDS: NICOTINE 21 MG/24 HOURS TOPICAL PATCH TD SCH (10:07)
[2017-01-23] MEDS: PRENATAL VITAMINS W/ FOLIC ACID TABLET (FP) PO SCH (10:07)
[2017-01-23] MEDS: ARIPiprazole 10 MG TABLET PO SCH (10:07)
[2017-01-23] MEDS: VANCOMYCIN 1,250 MG in DEXTROSE 5%-WATER - 250 ML IVPB SCH (10:54)
--- NOTE | 2017-01-23 11:50 | DS ---
Physical Exam: SUBJECTIVE: Patient seen and examined. She has no issues, she feels she is going to withdraw from her suboxone soon, no upper arm pain or issues. OBJECTIVE: Vital Signs Period Temp Pulse Resp BP Sys/[place] Pulse Ox Last 24 Hr 97.4 F-98.4 F 67-100 18-20 98-109/50-62 99 PE Neuro: alert, awake, cn 2-12intact Pulm: CTAB CV: s1 s2 rrr no mrg Abd: s nt nd + bs ExT: RUE incision site min erythema, mild drainage, no swelling, healing well Laboratory Results - last 24 hr 01/23/17 09:25 Vancomycin Pre-Dose 1.837 L* HOSPITAL COURSE: Date of Admission:01/20/17 Date of Discharge: 01/23/17 Minutes to complete discharge: 37 Discharge Summary Reason For Visit: CELLULITIS/ABSCESS Current Active Problems Abscess (Acute) Cellulitis (Acute) Hospital Course: Initial Hospital Course: 21 year old female with pmhx asthma, bi polar, anxiety, nicotine dependence, multiple drug dependence (marijuana, crack, alcohol, opiates, cocaine, benzos). One year ago she started using heroine, per [facility] record she uses 10 bags/ day, IV route last used on 01/16. She shoots to her bilateral arms, she only uses her own needles, does share from one site to the other, uses water to wet the needles. She is HIV negative (on 01/17) she went to [facility] seeking help to stop using, she was placed on methadone detox. When she arrived at [facility] (01/17) she as started on keflex 500mg q6hr for cellulitis to R arm In ED RUE was noted to be increasingly firm, tender, warm to touch with decreased function, along with elevated WBC. Abscess was drained in the ED at bedside. Patient reports cold and hot sweats, fever, chills, and feeling achy. She is constipated, last BM 2 days ago. Subsequent Hospital Course/Progress Note/Discharge Summary by a/p: Assessment: 21 year old female, hx of multiple substance abuse, admitted from [facility] with RUE cellulitis and abscess for heroine s/p skin popping. Plan: 1. RUE abscess/cellulitis d/t SQDU - Vanco 3 days, Zosyn (day 3) - ECHO negative for vegetation - Wound cx negative - Home with Augmentin 875 BID x7 days and clinda 300mg po q8 - Directed pt to follow up with wound care next week, [facility] referral made 2. Opiod dependance - Methadone detox completed - Remeron 7.5mg hs - Gabapentin 100 tid - Abilify 10mg daily - Restart lithium, level undetectable, pt has psych dr. amanda flynn who she is seeing after discharge for medication management appt and suboxone maintenance 3. Nicotine dependence - Nicotine patch Dispo: - Home with psych appt directly after - Abx as above Condition: Stable - Instructions Diet, Activity, Other Instructions: Please return to the ED for any new, persistent, or worsening symptoms. Follow up with your PCP in 1 week Complete antibiotics as directed and until completed Keep appt with Dr. Flynn today Follow up in wound care center next week Referrals: STAFF,NOT ON [Primary Care Provider] - (Dr. Amanda Flynn in [place], to follow up in office today ) Disposition: VNS/HOME HEALTH CARE - Home Medications Comprehensive Discharge Medication List: Ambulatory Orders Albuterol Sulfate Inhaler - [Ventolin HFA Inhaler -] 2 puff IH Q4H PRN #1 inh Amox-Tr/K Cl [Augmentin - 875Mg Tablet] 1 tab PO BID #14 tablet 01/23/17 Aripiprazole [Abilify -] 10 mg PO DAILY #30 tablet 01/23/17 Clindamycin [Cleocin -] 300 mg PO TID #21 capsule 01/23/17 Gabapentin [Neurontin -] 100 mg PO TID #30 tab 01/23/17 [place] Carbonate [Eskalith -] 900 mg PO HS #0 tab 01/23/17 Mirtazapine [Remeron -] 7.5 mg PO HS #20 tablet 01/23/17 Problem List - Problems (1) Abscess Code(s): L02.91 - CUTANEOUS ABSCESS, UNSPECIFIED (2) Cellulitis Code(s): L03.90 - CELLULITIS, UNSPECIFIED Qualifiers: Site of cellulitis: extremity Site of cellulitis of extremity: upper extremity Laterality: right Qualified Code(s): L03.113 - Cellulitis of right upper limb (3) Cocaine dependence Code(s): F14.20 - COCAINE DEPENDENCE, UNCOMPLICATED Qualifiers: Substance use status: uncomplicated Qualified Code(s): F14.20 - Cocaine dependence, uncomplicated (4) Heroin abuse Code(s): F11.10 - OPIOID ABUSE, UNCOMPLICATED (5) Nicotine dependence Code(s): F17.200 - NICOTINE DEPENDENCE, UNSPECIFIED, UNCOMPLICATED Qualifiers : Nicotine product type: cigarettes Substance use status: uncomplicated Qualified Code(s): F17.210 - Nicotine dependence, cigarettes, uncomplicated (6) Asthma Code(s): J45.909 - UNSPECIFIED ASTHMA, UNCOMPLICATED Qualifiers: Asthma severity: mild intermittent (7) Bipolar disorder Code(s): F31.9 - BIPOLAR DISORDER, UNSPECIFIED Qualifiers: Current episode severity: unspecified (8) Anxiety and depression Code(s): F41.9 - ANXIETY DISORDER, UNSPECIFIED F32.9 - MAJOR DEPRESSIVE DISORDER, SINGLE EPISODE, UNSPECIFIED This patient is new to me today: No Emergency Visit: Yes ED Registration Date: 01/20/17 Care time: The patient presented to the Emergency Department on the above date and was hospitalized for further evaluation of their emergent condition. Critical Care patient: No - Discharge Referral Referred to [facility] No
[2017-01-23 12:08] VITALS: PULSE 99; TEMP 97.9
== END 2017-01-23 13:00 | disposition home health service (06) | DRG 383 ==
LOC: JER 12:43 → JERBED 18:02 → J6S 19:17
PROVIDERS: ADMIT Internal Medicine; ATTEND Nurse Practitioner Acute Care
PROC: 0J9G0ZX Drainage of Right Lower Arm Subcutaneous Tissue and Fascia, Open Approach, Diagnostic (ICD-10-PCS; principal; 2017-01-20)
PROC: HZ81ZZZ Medication Management for Substance Abuse Treatment, Methadone Maintenance (ICD-10-PCS; 2017-01-21)
DX: L03.113 Cellulitis of right upper limb (principal); L02.413 Cutaneous abscess of right upper limb; F31.9 Bipolar disorder, unspecified; F10.20 Alcohol dependence, uncomplicated; F11.20 Opioid dependence, uncomplicated; F14.20 Cocaine dependence, uncomplicated; J45.909 Unspecified asthma, uncomplicated; F41.9 Anxiety disorder, unspecified; F17.210 Nicotine dependence, cigarettes, uncomplicated; K59.00 Constipation, unspecified
CPT/HCPCS: 36415; 73060-TC-RT; 73070-TC-RT; 73090-TC-RT; 80053; 83735; 84703; 85025; 87040; 87070; 87205; 93005; 93010; 93306-TC; 97116-GP; 97161-GP; 99283-25; G0480

== ENCOUNTER 2018-01-30 15:53 | Inpatient (IN) | payer OTHER ==
[2018-01-30 16:51] VITALS: BMI 20.1
--- NOTE | 2018-01-30 17:01 | HP ---
COWS - Scale Resting Pulse: 1= [place] 81-100 Sweatin= Chills/Flushing Restless Observation: 1= Difficult to Sit Still Pupil Size: 1= Pupils >than Normal Bone or Joint Aches: 2= Severe Diffuse Aches Runny Nose/ Eye Tearin= Runny Nose/Eyes GI Upset > 30mins: 2= Nausea/Diarrhea Tremor Observation: 1= Tremor [place], Not Seen Yawning Observation: 1= 1-2x During Session Anxiety or Irritability: 1=Feels Anxious/Irritable Goose Flesh Skin: 0=Smooth Skin COWS Score: 13 CIWA Score - CIWA Score Nausea/Vomitin Muscle Tremors: 1-None Visible, but [place] Anxiety: 2 Agitation: 1-Slight > Activity Paroxysmal Sweats: 2 Orientation: 1-Uncertain about Date Tacttile Disturbances: 1-Very Mild Itch/Numbness Auditory Disturbances: 0-None Visual Disturbances: 0-None Headache: 2-Mild CIWA-Ar Total Score: [address] [facility] - HPI Chief Complaint: Heroin withdrawal symptoms. Allergies/Adverse Reactions: Allergies Allergy/AdvReac Type Severity Reaction Status Date / Time Sulfa (Sulfonamide Allergy Severe Rash Verified 01/20/17 12:52 Antibiotics) History of Present Illness: PATIENT PRESENTS WITH HEROIN WITHDRAWAL SYMPTOMS AND COCAINE DEPENDENCE. PATIENT BEGAN INJECTING HEROIN AND SNIFFING COCAINE AT AGE 5. PATIENT USES UP TO 20 BAGS DAILY. LAST TIME USED WAS TODAY AT 11AM. PATIENT ALSO TAKES NON- PRESCRIBED XANAX WHEN AVAILABLE. QUANTITY TAKEN UNSURE. LAST TIME XANAX INGESTED WAS 4 DAYS AGO. PATIENT HAS PMH OF HEPATITIS C, DEPRESSION, NICOTINE DEPENDENCE AND WEIGHT LOSS. DENIES SI/ HI AND SUICIDE ATTEMPTS. Exam Limitations: No Limitations - Ebola screening Have you traveled outside of the country in the last 21 days: No Have you had contact with anyone from an Ebola affected area: No Have you been sick,other than usual withdrawal symptoms: No Do you have a fever: No - Review of Systems Constitutional: Chills, Night Sweats, Changes in sleep, Unexplained wgt Loss EENT: reports: Tearing, Nose Congestion Respiratory: reports: No Symptoms reported Cardiac: reports: No Symptoms Reported GI: reports: Diarrhea, Nausea, Poor Fluid Intake, Abdominal cramping : reports: No Symptoms Reported Musculoskeletal: reports: Back Pain, Muscle Pain Integumentary: reports: Sweating, Other (TRACK HODGE) Neuro: reports: Headache, Numbness, Tingling, Tremors Endocrine: reports: Unexplained Weight Loss Hematology: reports: No Symptoms Reported Psychiatric: reports: Anxious, Depressed Patient History - Patient Medical History Hx Anemia: No Hx Asthma: Yes Hx Chronic Obstructive Pulmonary Disease (COPD): No Hx Cancer: No Hx Cardiac Disorders: No Hx Congestive Heart Failure: No Hx Hypertension: No Hx Hypercholesterolemia: No Hx Pacemaker: No HX Cerebrovascular Accident: No Hx Seizures: No Hx Dementia: No Hx Diabetes: No Hx Gastrointestinal Disorders: No Hx Liver Disease: Yes (Hepatitis C, new diagnosis,not treated) Hx Genitourinary Disorders: No Hx Sexually Transmitted Disorders: No Hx Renal Disease (ESRD): No Hx Thyroid Disease: No Hx Human Immunodeficiency Virus (HIV): No (last 11/22 negative) Hx Hepatitis C: Yes (Hepatitis C, dx 11/2017, not treated) Hx Depression: Yes Hx Suicide Attempt: No Hx Bipolar Disorder: Yes Hx Schizophrenia: No - Patient Surgical History Past Surgical History: Yes Hx Neurologic Surgery: No Hx Cataract Extraction: No Hx Cardiac Surgery: No Hx Lung Surgery: No Hx Breast Surgery: No Hx Breast Biopsy: No Hx Abdominal Surgery: Yes Hx Appendectomy: No Hx Cholecystectomy: No Hx Genitourinary Surgery: No Hx Section: Yes (2013) Hx Orthopedic Surgery: No Hx Hysterectomy: No Anesthesia Reaction: No - PPD History Date: 02/09/16 Results: 0 mm PPD to be Administered?: Yes - Reproductive History Patient is a Female of Child Bearing Age (11 -55 yrs old): Yes Last Menstrual Period: 11/06/17 Patient : No - Smoking Cessation Smoking history: Current every day smoker Have you smoked in the past 12 months: Yes Aproximately how many cigarettes per day: 20 Cigars Per Day: 0 Hx Chewing Tobacco Use: No Initiated information on smoking cessation: Yes 'Breaking Loose' booklet given: 01/30/18 - Substance & Tx. History Hx Alcohol Use: No Hx Substance Use: Yes Substance Use Type: Cocaine, Heroin, Tranquilizers Hx Substance Use Treatment: Yes (01/2017 [facility]) - Substances Abused Cocaine Route: Smoking Frequency: Daily Amount used: 20 BAGS Age of first use: 5 Date of Last Use: 01/30/18 HEROIN Route: Injection Frequency: Daily Amount used: 20 BAGS Age of first use: 5 Date of Last Use: 01/30/18 Family Disease History - Family Disease History Family Disease History: Diabetes: Grandparent, Mother (HEROIN/ CRACK/COCAINE), Other: Father (HEROIN & ALCOHOL), Mother Admission Physical Exam [facility] - Vital Signs Vital Signs: Vital Signs - 24 hr 01/30/18 16:48 Temperature 98.9 F Pulse Rate 83 Respiratory 18 Rate Blood Pressure 104/57 - Physical General Appearance: Yes: Disheveled, Thin, Tremorous, Sweating, Anxious HEENTM: Yes: EOMI, Hearing grossly Normal, Normocephalic, Normal Voice, YUSUF, Pharynx Normal, Nasal Congestion Respiratory: Yes: Chest Non-Tender, Lungs Clear, Normal Breath Sounds, No Respiratory Distress, No Accessory Muscle Use Neck: Yes: No masses,lesions,Nodules, Supple Breast: Yes: Breast Exam Deferred Cardiology: Yes: Regular Rhythm, Regular Rate, S1, S2 Abdominal: Yes: Normal Bowel Sounds, Non Tender, Flat, Soft Genitourinary: Yes: Within Normal Limits Back: Yes: Muscle Spasm Musculoskeletal: Yes: full range of Motion, Gait Steady, Muscle Pain Extremities: Yes: Normal Range of Motion, Non-Tender, Tremors Neurological: Yes: case assistant II-XII NML intact, Motor Strength 5/5, Normal Response, Numbness, Depressed Affect Integumentary: Yes: Normal Color, Warm, Moist, Track Hodge Lymphatic: Yes: Within Normal Limits - Diagnostic (1) Opioid dependence with withdrawal Current Visit: Yes Status: Acute (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 Visit: Yes Status: Chronic (3) Cocaine dependence Current Visit: Yes Status: Chronic Qualifiers: Substance use status: uncomplicated Qualified Code(s): F14.20 - Cocaine dependence, uncomplicated (4) Nicotine dependence Current Visit: Yes Status: Acute Qualifiers: Nicotine product type: cigarettes Substance use status: uncomplicated Qualified Code(s): F17.210 - Nicotine dependence, cigarettes, uncomplicated (5) Anxiety and depression Current Visit: Yes Status: Chronic Cleared for Admission [facility] - Detox or Rehab [facility] Level of Care: Medically Managed Detox Regimen/Protocol: Methadone [facility] Breath Alcohol Content Breath Alcohol Content: 0 Urine Pregancy Test - Result Urine Test Results: Negative- NO Line Present Urine Drug Screen - Results Drug Screen Negative: No Urine Drug Screen Results: SYDNEE-Cocaine, OPI-Opiates
[2018-01-30] MEDS ORDERED: NICOTINE POLACRILEX 2 MG GUM BC PRN (17:15)
[2018-01-30] MEDS ORDERED: MAGNESIUM HYDROX 2400MG/30ML ORAL SUSPENSION 30 ML CUP PO PRN (17:15)
[2018-01-30] MEDS ORDERED: MENTHOL/PHENOL 1 EACH UD MM PRN (17:15)
[2018-01-30] MEDS ORDERED: hydrOXYzine PAMOATE 50 MG CAPSULE (FP) PO PRN (17:15)
[2018-01-30] MEDS ORDERED: IBUPROFEN 400 MG TABLET (FP) PO PRN (17:15)
[2018-01-30] MEDS ORDERED: ACETAMINOPHEN 325 MG TABLET (FP) PO PRN (17:15)
[2018-01-30] MEDS ORDERED: LOPERAMIDE HCL 2 MG CAPSULE PO PRN (17:15)
[2018-01-30] MEDS ORDERED: MAG HYDROX/AL HYDROX/SIMETH 30 ML UNIT-DOSE CUP PO PRN (17:15)
[2018-01-30] MEDS ORDERED: guaiFENesin/D-METHORPHAN HB 10 ML UNIT-DOSE CUPS PO PRN (17:15)
[2018-01-30] MEDS ORDERED: MAGNESIUM CITRATE 300 ML BOTTLE PO PRN (17:15)
[2018-01-30] MEDS ORDERED: P-EPHED 60MG/TRIPROLIDI 2.5MG TABLET PO PRN (17:15)
[2018-01-30] MEDS ORDERED: METHADONE HCL 10 MG TABLET (FOR DETOX USE ONLY) PO ONE ×2 (17:17→23:00)
[2018-01-30] MEDS: diazePAM 5 MG TABLET PO PRN (18:47)
[2018-01-30] MEDS ORDERED: MELATONIN 5 MG TABLETS PO PRN (22:00)
[2018-01-30] MEDS: THIAMINE HCL 100 MG TABLET (FP) PO SCH (22:33)
[2018-01-31 01:45] LABS: URINE APPEARANCE CLEAR; URINE BILIRUBIN NEGATIVE (<2.0 mg/dL); URINE COLOR YELLOW; URINE GLUCOSE (UA) NEGATIVE (NEGATIVE); URINE KETONE NEGATIVE (NEGATIVE); URINE LEUK ESTERASE NEGATIVE (NEGATIVE); URINE NITRITE NEGATIVE (NEGATIVE); URINE PROTEIN NEGATIVE (NEGATIVE)
--- NOTE | 2018-01-31 07:40 | CONSULT ---
[facility] Psychiatric Consult - Data Date of interview: 01/31/18 Admission source: [facility] Identifying data: This is 22 years old female, single mothe rof one, homeless, with no income, with history of Bipoolar Disorder, history of Heorin, Cocaine and Nicotine dependence, denies psychiatric hospitalization history, poor historian, refusing blood test done, uncooperative and restless. Reporting Heroin withdrawal symptoms and seeking for detox. After supportive psychotherapy blood test was done. Substance Abuse History: Smoking history: Current every day smoker. Have you smoked in the past 12 months: Yes. Aproximately how many cigarettes per day: 20. Cigars Per Day: 0. Hx Chewing Tobacco Use: No. Initiated information on smoking cessation: Yes. 'Breaking Loose' booklet given: 01/30/18. - Substance & Tx. History. Hx Alcohol Use: No. Hx Substance Use: Yes. Substance Use Type : Cocaine, Heroin, Tranquilizers. Hx Substance Use Treatment: Yes (01/2017 [facility] . - Substances Abused. Cocaine. Route: Smoking. Frequency: Daily. Amount used: 20 BAGS. Age of first use: 5. Date of Last Use: 01/30/18. HEROIN. Route: Injection. Frequency: Daily. Amount used: 20 BAGS. Age of first use: 5. Date of Last Use: 01/30/18 Medical History: HepC+, , Weight loss history Psychiatric History: Patient reports history of Bipolar Disorder, uncooperative , restless, asking -"live me alone, I did not sleep three days". As per computer patioent has been on: [place] 900mg po qhs. Abilify 10mg poqd. Remeron 7,5mg po qhs. Patient refusing to restart preadmission medications. Patient is restless and imtrussive, loud and uncooperative,. Denies suicidal, homicidal history Physical/Sexual Abuse/Trauma History: Unclear Additional Comment: Observation. Detox Unit Care. [place] blood level Mental Status Exam - Mental Status Exam Alert and Oriented to: Person Cognitive Function: Fair Patient Appearance: Unkempt Mood: Angry, Anxious, Expansive, Irritable Affect: Constricted, Labile Patient Behavior: Aggressive, Restless, Uncooperative, Guarded, Agitated Speech Pattern: Excessive, Pressured Voice Loudness: Moderately Loud Thought Process: Circumstantial, Goal Oriented Hallucinations: Denies Suicidal Ideation: Denies Homicidal Ideation: Denies Insight/Judgement: Fair Sleep: Fair Appetite: Weight loss Muscle strength/Tone: Mild Hypertonicity Gait/Station: Normal Additional Comments: Observation. Detox Unit Care. [place] blood level Psychiatric Findings - Problem List ([place] 1, 2,3) (1) Non compliance w medication regimen Current Visit: Yes Status: Acute (2) Nicotine dependence Current Visit: Yes Status: Acute Qualifiers: Nicotine product type: cigarettes Substance use status: uncomplicated Qualified Code(s): F17.210 - Nicotine dependence, cigarettes, uncomplicated (3) Opioid dependence with withdrawal Current Visit: Yes Status: Acute (4) Anxiety and depression Current Visit: Yes Status: Chronic (5) Cocaine dependence Current Visit: Yes Status: Chronic Qualifiers: Substance use status: uncomplicated Qualified Code(s): F14.20 - Cocaine dependence, uncomplicated (6) Sedative hypnotic or anxiolytic dependence Current Visit: Yes Status: Chronic (7) Alcohol dependence with uncomplicated withdrawal Current Visit: No Status: Acute (8) Cannabis dependence Current Visit: No Status: Acute (9) Heroin abuse Current Visit: No Status: Acute (10) Opioid dependence with withdrawal Current Visit: No Status: Acute (11) Sedative, hypnotic or anxiolytic dependence with withdrawal, uncomplicated Current Visit: No Status: Acute (12) Substance induced mood disorder Current Visit: No Status: Acute (13) Bipolar I disorder Current Visit: No Status: Chronic (14) PTSD (post-traumatic stress disorder) Current Visit: No Status: Chronic Comment: By history. - Initial Treatment Plan Initial Treatment Plan: Observation. Detox Unit Care. [place] blood level
[2018-01-31 10:00] LABS: HEMATOCRIT 42.6 % (32.4-45.2); MCH 27.7 pg (25.7-33.7); MCHC 32.9 g/dl (32.0-36.0); MEAN CELL VOLUME 84.3 fl (80-96); MEAN PLT VOLUME 7.8 fl (7.5-11.1); PLATELET COUNT 411 K/MM3 (134-434); RBC 5.05 M/mm3 (3.60-5.2); RDW 15.1 % (11.6-15.6); WHITE BLOOD COUNT 7.6 K/mm3 (4.0-10.0)
[2018-01-31] MEDS ORDERED: METHADONE HCL 10 MG TABLET (FOR DETOX USE ONLY) PO ONE (10:00)
--- NOTE | 2018-01-31 10:07 | PN ---
BHS COWS - Scale Resting Pulse: 0= CT 80 or Below Sweatin= Chills/Flushing Restless Observation: 1= Difficult to Sit Still Pupil Size: 1= Pupils >than Normal Bone or Joint Aches: 2= Severe Diffuse Aches Runny Nose/ Eye Tearin= Nasal Congestion GI Upset > 30mins: 1= Stomach Cramp Tremor Observation of Outstretched Hands: 1= Tremor [place], Not Seen Yawning Observation: 1= 1-2x During Session Anxiety or Irritability: 2=Irritable/Anxious Goose Flesh Skin: 3=Piloerection COWS Score: 14 S Progress Note (SOAP) Subjective: tremor sweat hot and cold restlessness body ache muscle cramp trouble sleep at night patient had history of positive hepatitis c Objective: 01/31/18 10:08 Vital Signs Temperature 97.5 F L 01/31/18 07:57 Pulse Rate 54 L 01/31/18 07:57 Respiratory Rate 16 01/31/18 07:57 Blood Pressure 98/62 01/31/18 07:57 O2 Sat by Pulse Oximetry (%) Laboratory Last Values Urine Color Yellow 01/30/18 01:30 Urine Appearance Clear 01/30/18 01:30 Urine pH 6.0 (5.0-8.0) 01/30/18 01:30 Ur Specific [place] 1.023 (1.001-1.035) 01/30/18 01:30 Urine Protein Negative (NEGATIVE) 01/30/18 01:30 Urine Glucose (UA) Negative (NEGATIVE) 01/30/18 01:30 Urine Ketones Negative (NEGATIVE) 01/30/18 01:30 Urine Blood Negative (NEGATIVE) 01/30/18 01:30 Urine Nitrite Negative (NEGATIVE) 01/30/18 01:30 Urine Bilirubin Negative (<2.0 mg/dL) 01/30/18 01:30 Urine Urobilinogen 2.0 mg/dL (0.2-1.0) H 01/30/18 01:30 Ur Leukocyte Esterase Negative (NEGATIVE) 01/30/18 01:30 lab noted requests hiv testing Assessment: 01/31/18 10:09 opiate withdrawal sx Plan: continue detox
[2018-01-31 10:19] LABS: CHLORIDE 107 mmol/L (98-107); POTASSIUM 4.6 mmol/L (3.5-5.1); SODIUM 142 mmol/L (136-145)
[2018-01-31] MEDS: PRENATAL VITAMINS W/ FOLIC ACID TABLET (FP) PO SCH (10:38)
[2018-01-31] MEDS: NICOTINE 21 MG/24 HOURS TOPICAL PATCH TD SCH (10:39)
[2018-01-31 10:40] LABS: ALBUMIN 3.3 g/dl (3.4-5.0); ALK PHOS 67 U/L (45-117); ANION GAP 7 (8-16); BILIRUBIN,TOTAL 0.3 mg/dL (0.2-1.0); BLOOD UREA NITROGEN 10 mg/dL (7-18); CALCIUM 9.2 mg/dL (8.5-10.1); CO2 28 mmol/L (21-32); CREATININE 0.8 mg/dL (0.55-1.02); GLUCOSE,RANDOM 88 mg/dL (74-106); SGOT/AST 32 U/L (15-37); SGPT/ALT 61 U/L (12-78); TOT PROT 7.4 g/dl (6.4-8.2)
[2018-01-31] MEDS: diazePAM 5 MG TABLET PO PRN ×2 (13:43→22:34)
--- NOTE | 2018-01-31 14:35 | EKG ---
Test Reason : Blood Pressure : / mmHG Vent. Rate : 082 BPM Atrial Rate : 082 BPM P-R Int : 108 ms QRS Dur : 082 ms QT Int : 376 ms P-R-T Axes : 017 082 067 degrees QTc Int : 439 ms SINUS RHYTHM WITH SHORT HI OTHERWISE NORMAL ECG WHEN COMPARED WITH ECG OF 20-JAN-2017 18:17, NO SIGNIFICANT CHANGE WAS FOUND Confirmed by KOSTAS MILLER MD ([id number]) on 01/31/2018 2:35:40 PM Referred By: Confirmed By:KOSTAS MILLER MD
[2018-01-31] MEDS: THIAMINE HCL 100 MG TABLET (FP) PO SCH (22:34)
[2018-02-01] MEDS ORDERED: METHADONE HCL 5 MG TABLET (FOR DETOX USE ONLY) PO ONE (10:00)
[2018-02-01] MEDS: PRENATAL VITAMINS W/ FOLIC ACID TABLET (FP) PO SCH (11:01)
[2018-02-01] MEDS: diazePAM 5 MG TABLET PO PRN ×2 (11:05→19:42)
[2018-02-01] MEDS: NICOTINE 21 MG/24 HOURS TOPICAL PATCH TD SCH (11:05)
--- NOTE | 2018-02-01 15:21 | PN ---
BHS COWS - Scale Resting Pulse: 1= [place] 81-100 Sweatin= Chills/Flushing Restless Observation: 1= Difficult to Sit Still Pupil Size: 1= Pupils >than Normal Bone or Joint Aches: 2= Severe Diffuse Aches Runny Nose/ Eye Tearin= Nasal Congestion GI Upset > 30mins: 1= Stomach Cramp Tremor Observation of Outstretched Hands: 1= Tremor [place], Not Seen Yawning Observation: 1= 1-2x During Session Anxiety or Irritability: 2=Irritable/Anxious Goose Flesh Skin: 3=Piloerection COWS Score: 15 BHS Progress Note (SOAP) Subjective: pt is anxious- would like to go to rehab- says the low dose of methadone is not high enough for her- says she would like to get methadone via MAT. Says she is homeless Objective: 02/01/18 15:20 Vital Signs - 24 hr 01/31/18 01/31/18 02/01/18 17:47 22:14 00:30 Temperature 97.2 F L 97.3 F L Pulse Rate 103 H 86 Respiratory 18 18 18 Rate Blood Pressure 95/51 112/67 02/01/18 02/01/18 02/01/18 03:30 06:28 09:47 Temperature 96.6 F L 97.1 F L Pulse Rate 60 65 Respiratory 16 16 16 Rate Blood Pressure 97/59 88/45 02/01/18 14:00 Temperature 97.9 F Pulse Rate 103 H Respiratory 20 Rate Blood Pressure 126/77 Laboratory Tests 01/30/18 01/31/18 01/31/18 01:30 08:00 08:00 WBC 7.6 RBC 5.05 Hgb 14.0 Hct 42.6 MCV 84.3 MCH 27.7 MCHC 32.9 RDW 15.1 D Plt Count 411 D MPV 7.8 D Sodium 142 Potassium 4.6 Chloride 107 Carbon Dioxide 28 Anion Gap 7 L BUN 10 Creatinine 0.8 Creat Clearance w eGFR > 60 Random Glucose 88 Calcium 9.2 Total Bilirubin 0.3 AST 32 ALT 61 Alkaline Phosphatase 67 Total Protein 7.4 Albumin 3.3 L Urine Color Yellow Urine Appearance Clear Urine pH 6.0 Ur Specific [place] 1.023 Urine Protein Negative Urine Glucose (UA) Negative Urine Ketones Negative Urine Blood Negative Urine Nitrite Negative Urine Bilirubin Negative Urine Urobilinogen 2.0 H Ur Leukocyte Esterase Negative [place] RPR Titer HIV 1&2 Antibody Screen HIV P24 Antigen 01/31/18 01/31/18 01/31/18 08:00 08:00 09:50 WBC RBC Hgb Hct MCV MCH MCHC RDW Plt Count MPV Sodium Potassium Chloride Carbon Dioxide Anion Gap BUN Creatinine Creat Clearance w eGFR Random Glucose Calcium Total Bilirubin AST ALT Alkaline Phosphatase Total Protein Albumin Urine Color Urine Appearance Urine pH Ur Specific [place] Urine Protein Urine Glucose (UA) Urine Ketones Urine Blood Urine Nitrite Urine Bilirubin Urine Urobilinogen Ur Leukocyte Esterase [place] 0 L RPR Titer Nonreactive HIV 1&2 Antibody Screen Negative HIV P24 Antigen Negative high pulse rate labs WNL Assessment: 02/01/18 15:21 PATIENT PRESENTS WITH HEROIN WITHDRAWAL SYMPTOMS AND COCAINE DEPENDENCE, HERE FOR METHADONE BASED HEROIN DETOX Plan: continue meth detox. Pt needs to be d/c'd to be admitted to the MAT at [facility]. Pt [place]
[2018-02-01] MEDS ORDERED: COLLOIDAL OATMEAL 1 BAR EACH TP PRN (15:58)
[2018-02-01] MEDS: THIAMINE HCL 100 MG TABLET (FP) PO SCH (23:14)
[2018-02-02] MEDS ORDERED: METHADONE HCL 5 MG TABLET (FOR DETOX USE ONLY) PO ONE (10:00)
[2018-02-02] MEDS: PRENATAL VITAMINS W/ FOLIC ACID TABLET (FP) PO SCH (11:02)
[2018-02-02] MEDS: diazePAM 5 MG TABLET PO PRN ×2 (11:02→15:17)
[2018-02-02] MEDS: NICOTINE 21 MG/24 HOURS TOPICAL PATCH TD SCH (11:04)
--- NOTE | 2018-02-02 13:52 | PN ---
BHS Progress Note (SOAP) Subjective: Joint pain, restlessness Objective: 02/02/18 13:51 Vital Signs - 8 hr 02/02/18 02/02/18 06:00 11:36 Temperature 97.5 F L 98.1 F Pulse Rate 80 103 H Respiratory 16 18 Rate Blood Pressure 114/70 123/69 Laboratory Last Values WBC 7.6 K/mm3 (4.0-10.0) 01/31/18 08:00 RBC 5.05 M/mm3 (3.60-5.2) 01/31/18 08:00 Hgb 14.0 GM/dL (10.7-15.3) 01/31/18 08:00 Hct 42.6 % (32.4-45.2) 01/31/18 08:00 MCV 84.3 fl (80-96) 01/31/18 08:00 MCH 27.7 pg (25.7-33.7) 01/31/18 08:00 MCHC 32.9 g/dl (32.0-36.0) 01/31/18 08:00 RDW 15.1 % (11.6-15.6) D 01/31/18 08:00 Plt Count 411 K/MM3 (134-434) D 01/31/18 08:00 MPV 7.8 fl (7.5-11.1) D 01/31/18 08:00 Sodium 142 mmol/L (136-145) 01/31/18 08:00 Potassium 4.6 mmol/L (3.5-5.1) 01/31/18 08:00 Chloride 107 mmol/L (98-107) 01/31/18 08:00 Carbon Dioxide 28 mmol/L (21-32) 01/31/18 08:00 Anion Gap 7 (8-16) L 01/31/18 08:00 BUN 10 mg/dL (7-18) 01/31/18 08:00 Creatinine 0.8 mg/dL (0.55-1.02) 01/31/18 08:00 Creat Clearance w eGFR > 60 (>60) 01/31/18 08:00 Random Glucose 88 mg/dL (74-106) 01/31/18 08:00 Calcium 9.2 mg/dL (8.5-10.1) 01/31/18 08:00 Total Bilirubin 0.3 mg/dL (0.2-1.0) 01/31/18 08:00 AST 32 U/L (15-37) 01/31/18 08:00 ALT 61 U/L (12-78) 01/31/18 08:00 Alkaline Phosphatase 67 U/L (45-117) 01/31/18 08:00 Total Protein 7.4 g/dl (6.4-8.2) 01/31/18 08:00 Albumin 3.3 g/dl (3.4-5.0) L 01/31/18 08:00 Urine Color Yellow 01/30/18 01:30 Urine Appearance Clear 01/30/18 01:30 Urine pH 6.0 (5.0-8.0) 01/30/18 01:30 Ur Specific [place] 1.023 (1.001-1.035) 01/30/18 01:30 Urine Protein Negative (NEGATIVE) 01/30/18 01:30 Urine Glucose (UA) Negative (NEGATIVE) 01/30/18 01:30 Urine Ketones Negative (NEGATIVE) 01/30/18 01:30 Urine Blood Negative (NEGATIVE) 01/30/18 01:30 Urine Nitrite Negative (NEGATIVE) 01/30/18 01:30 Urine Bilirubin Negative (<2.0 mg/dL) 01/30/18 01:30 Urine Urobilinogen 2.0 mg/dL (0.2-1.0) H 01/30/18 01:30 Ur Leukocyte Esterase Negative (NEGATIVE) 01/30/18 01:30 [place] 0 MEQ/L (0.6-1.2) L 01/31/18 08:00 RPR Titer Nonreactive (NONREACTIVE) 01/31/18 08:00 HIV 1&2 Antibody Screen Negative 01/31/18 09:50 HIV P24 Antigen Negative 01/31/18 09:50 Labs noted Assessment: 02/02/18 13:51 Withdrawal sx Plan: Continue detox
[2018-02-02] MEDS: THIAMINE HCL 100 MG TABLET (FP) PO SCH (22:20)
[2018-02-03] MEDS ORDERED: BACLOFEN 10 MG TABLET (FP) PO PRN (09:28)
[2018-02-03] MEDS ORDERED: METHADONE HCL 10 MG TABLET (FOR DETOX USE ONLY) PO ONE (10:00)
[2018-02-03] MEDS: NICOTINE 21 MG/24 HOURS TOPICAL PATCH TD SCH (10:18)
[2018-02-03] MEDS: PRENATAL VITAMINS W/ FOLIC ACID TABLET (FP) PO SCH (10:18)
--- NOTE | 2018-02-03 12:00 | PN ---
[facility] Progress Note (SOAP) Subjective: feeling better mild body ache increase neurontin dosage for restlessness and irritability mild muscle cramping begin beclofen 10 mg tid Objective: 02/03/18 11:59 Vital Signs Temperature 97.2 F L 02/03/18 06:00 Pulse Rate 58 L 02/03/18 06:00 Respiratory Rate 16 02/03/18 06:00 Blood Pressure 90/46 02/03/18 06:00 O2 Sat by Pulse Oximetry (%) Laboratory Last Values WBC 7.6 K/mm3 (4.0-10.0) 01/31/18 08:00 RBC 5.05 M/mm3 (3.60-5.2) 01/31/18 08:00 Hgb 14.0 GM/dL (10.7-15.3) 01/31/18 08:00 Hct 42.6 % (32.4-45.2) 01/31/18 08:00 MCV 84.3 fl (80-96) 01/31/18 08:00 MCH 27.7 pg (25.7-33.7) 01/31/18 08:00 MCHC 32.9 g/dl (32.0-36.0) 01/31/18 08:00 RDW 15.1 % (11.6-15.6) D 01/31/18 08:00 Plt Count 411 K/MM3 (134-434) D 01/31/18 08:00 MPV 7.8 fl (7.5-11.1) D 01/31/18 08:00 Sodium 142 mmol/L (136-145) 01/31/18 08:00 Potassium 4.6 mmol/L (3.5-5.1) 01/31/18 08:00 Chloride 107 mmol/L (98-107) 01/31/18 08:00 Carbon Dioxide 28 mmol/L (21-32) 01/31/18 08:00 Anion Gap 7 (8-16) L 01/31/18 08:00 BUN 10 mg/dL (7-18) 01/31/18 08:00 Creatinine 0.8 mg/dL (0.55-1.02) 01/31/18 08:00 Creat Clearance w eGFR > 60 (>60) 01/31/18 08:00 Random Glucose 88 mg/dL (74-106) 01/31/18 08:00 Calcium 9.2 mg/dL (8.5-10.1) 01/31/18 08:00 Total Bilirubin 0.3 mg/dL (0.2-1.0) 01/31/18 08:00 AST 32 U/L (15-37) 01/31/18 08:00 ALT 61 U/L (12-78) 01/31/18 08:00 Alkaline Phosphatase 67 U/L (45-117) 01/31/18 08:00 Total Protein 7.4 g/dl (6.4-8.2) 01/31/18 08:00 Albumin 3.3 g/dl (3.4-5.0) L 01/31/18 08:00 Urine Color Yellow 01/30/18 01:30 Urine Appearance Clear 01/30/18 01:30 Urine pH 6.0 (5.0-8.0) 01/30/18 01:30 Ur Specific [place] 1.023 (1.001-1.035) 01/30/18 01:30 Urine Protein Negative (NEGATIVE) 01/30/18 01:30 Urine Glucose (UA) Negative (NEGATIVE) 01/30/18 01:30 Urine Ketones Negative (NEGATIVE) 01/30/18 01:30 Urine Blood Negative (NEGATIVE) 01/30/18 01:30 Urine Nitrite Negative (NEGATIVE) 01/30/18 01:30 Urine Bilirubin Negative (<2.0 mg/dL) 01/30/18 01:30 Urine Urobilinogen 2.0 mg/dL (0.2-1.0) H 01/30/18 01:30 Ur Leukocyte Esterase Negative (NEGATIVE) 01/30/18 01:30 [place] 0 MEQ/L (0.6-1.2) L 01/31/18 08:00 RPR Titer Nonreactive (NONREACTIVE) 01/31/18 08:00 HIV 1&2 Antibody Screen Negative 01/31/18 09:50 HIV P24 Antigen Negative 01/31/18 09:50 lab noted Assessment: 02/03/18 11:59 mild withdrawal sx Plan: medically supervised detox
[2018-02-04] MEDS: THIAMINE HCL 100 MG TABLET (FP) PO SCH (00:23)
[2018-02-04] MEDS ORDERED: METHADONE HCL 5 MG TABLET (FOR DETOX USE ONLY) PO ONE (06:00)
--- NOTE | 2018-02-04 08:40 | DS ---
[facility] Detox Discharge Summary Admission Date: 01/30/18 Discharge Date: 02/04/18 - History Present History: Opioid Dependence Additional Comments: 22 years old female admitted on 01/30/18 for opiate withdrawal sx completed opiate detox regimen tolerated well denies opiate withdrawal sx alert oriented x 3 no acute distress aftercare [facility] maintenance treatment program patient is optimistic about maintenance program which will help her avoid using heroin - Physical Exam Results Vital Signs: Vital Signs Temperature 98.1 F 02/04/18 07:14 Pulse Rate 118 H 02/04/18 07:14 Respiratory Rate 18 02/04/18 07:14 Blood Pressure 121/94 02/04/18 07:14 O2 Sat by Pulse Oximetry (%) Pertinent Admission Physical Exam Findings: opiate withdrawal sx Vital Signs Temperature 98.1 F 02/04/18 07:14 Pulse Rate 118 H 02/04/18 07:14 Respiratory Rate 18 02/04/18 07:14 Blood Pressure 121/94 02/04/18 07:14 O2 Sat by Pulse Oximetry (%) Laboratory Last Values WBC 7.6 K/mm3 (4.0-10.0) 01/31/18 08:00 RBC 5.05 M/mm3 (3.60-5.2) 01/31/18 08:00 Hgb 14.0 GM/dL (10.7-15.3) 01/31/18 08:00 Hct 42.6 % (32.4-45.2) 01/31/18 08:00 MCV 84.3 fl (80-96) 01/31/18 08:00 MCH 27.7 pg (25.7-33.7) 01/31/18 08:00 MCHC 32.9 g/dl (32.0-36.0) 01/31/18 08:00 RDW 15.1 % (11.6-15.6) D 01/31/18 08:00 Plt Count 411 K/MM3 (134-434) D 01/31/18 08:00 MPV 7.8 fl (7.5-11.1) D 01/31/18 08:00 Sodium 142 mmol/L (136-145) 01/31/18 08:00 Potassium 4.6 mmol/L (3.5-5.1) 01/31/18 08:00 Chloride 107 mmol/L (98-107) 01/31/18 08:00 Carbon Dioxide 28 mmol/L (21-32) 01/31/18 08:00 Anion Gap 7 (8-16) L 01/31/18 08:00 BUN 10 mg/dL (7-18) 01/31/18 08:00 Creatinine 0.8 mg/dL (0.55-1.02) 01/31/18 08:00 Creat Clearance w eGFR > 60 (>60) 01/31/18 08:00 Random Glucose 88 mg/dL (74-106) 01/31/18 08:00 Calcium 9.2 mg/dL (8.5-10.1) 01/31/18 08:00 Total Bilirubin 0.3 mg/dL (0.2-1.0) 01/31/18 08:00 AST 32 U/L (15-37) 01/31/18 08:00 ALT 61 U/L (12-78) 01/31/18 08:00 Alkaline Phosphatase 67 U/L (45-117) 01/31/18 08:00 Total Protein 7.4 g/dl (6.4-8.2) 01/31/18 08:00 Albumin 3.3 g/dl (3.4-5.0) L 01/31/18 08:00 Urine Color Yellow 01/30/18 01:30 Urine Appearance Clear 01/30/18 01:30 Urine pH 6.0 (5.0-8.0) 01/30/18 01:30 Ur Specific [place] 1.023 (1.001-1.035) 01/30/18 01:30 Urine Protein Negative (NEGATIVE) 01/30/18 01:30 Urine Glucose (UA) Negative (NEGATIVE) 01/30/18 01:30 Urine Ketones Negative (NEGATIVE) 01/30/18 01:30 Urine Blood Negative (NEGATIVE) 01/30/18 01:30 Urine Nitrite Negative (NEGATIVE) 01/30/18 01:30 Urine Bilirubin Negative (<2.0 mg/dL) 01/30/18 01:30 Urine Urobilinogen 2.0 mg/dL (0.2-1.0) H 01/30/18 01:30 Ur Leukocyte Esterase Negative (NEGATIVE) 01/30/18 01:30 [place] 0 MEQ/L (0.6-1.2) L 01/31/18 08:00 RPR Titer Nonreactive (NONREACTIVE) 01/31/18 08:00 HIV 1&2 Antibody Screen Negative 01/31/18 09:50 HIV P24 Antigen Negative 01/31/18 09:50 lab noted - Treatment Hospital Course: Detox Protocol Followed, Detoxed Safely, Responded well, Discharged Condition Good, Rehab Referral Accepted Patient has Accepted a Rehab Referral to: [facility] Maintenance Treatment [facility] - Medication Discharge Medications: Ambulatory Orders Aripiprazole [Abilify -] 10 mg PO DAILY #30 tablet 01/23/17 Galt Carbonate [Eskalith -] 900 mg PO HS #0 tab 01/23/17 Mirtazapine [Remeron -] 7.5 mg PO HS #20 tablet 01/23/17 Albuterol Sulfate Inhaler - [Ventolin HFA Inhaler -] 2 puff IH Q4H PRN #1 inh Gabapentin [Neurontin -] 100 mg PO TID #30 tab 02/03/18 - Diagnosis (1) Nicotine dependence Current Visit: Yes Status: Acute Qualifiers: Nicotine product type: cigarettes Substance use status: in withdrawal Qualified Code(s): F17.213 - Nicotine dependence, cigarettes, with withdrawal (2) Opioid dependence with withdrawal Current Visit: Yes Status: Acute (3) Asthma, mild intermittent Current Visit: Yes Status: Chronic Qualifiers: Asthma complication type: uncomplicated Qualified Code(s): J45.20 - Mild intermittent asthma, uncomplicated (4) Bipolar I disorder Current Visit: Yes Status: Suspected - AMA Did Patient Leave Against Medical Advice: No
[2018-02-04 09:59] VITALS: BP 95/59; PULSE 105; TEMP 97.9
== END 2018-02-04 09:27 | disposition home or self-care (01) | DRG 773 ==
LOC: YASAS 15:53 → Y6N 18:38
PROVIDERS: ADMIT Surgery; ATTEND Surgery
PROC: HZ2ZZZZ Detoxification Services for Substance Abuse Treatment (ICD-10-PCS; principal; 2018-01-30)
DX: F11.23 Opioid dependence with withdrawal (principal); F10.230 Alcohol dependence with withdrawal, uncomplicated; F13.20 Sedative, hypnotic or anxiolytic dependence, uncomplicated; F14.20 Cocaine dependence, uncomplicated; F17.210 Nicotine dependence, cigarettes, uncomplicated; F31.89 Other bipolar disorder; F41.8 Other specified anxiety disorders; B18.2 Chronic viral hepatitis C; J45.20 Mild intermittent asthma, uncomplicated; Z91.14 Patient's other noncompliance with medication regimen; Z88.2 Allergy status to sulfonamides; Z59.0 Homelessness
CPT/HCPCS: 36415; 80053; 80178; 81003; 85027; 86593; 87389; 93005; 93010